=== PATIENT | male | born 1955 | race Caucasian/White ===

== ENCOUNTER 2016-08-15 21:04 | Emergency (ER) | payer OTHER ==
[~2016-08-15] VITALS: Ht 177.8 cm; Wt 97.1 kg
[~2016-08-15 21:04] MED LIST: AMIO200T PO; ASPI325T11 PO; ASPI325T4 PO; ATOR10TA60 PO; B12/1TAB PO; CLOP75TA27 PO; CRESTOR20 MG PO; DOXA2TAB2 PO; FAMO20TA5 PO; GABA600T2 PO; IBUP-1027 PO; INSU100I17 SQ; INSU100I27 SQ; INSU100V13 SQ; LISI-338 PO; LISI1TAB3 PO; METF500T4 PO; METO25TA4 PO; METO25TA9 PO; OXYC-323 PO; PANT40TA5 PO; PIOG30TA20 PO
[2016-08-15 21:41] LABS: BILIRUBIN,URINE NEGATIVE (NEG); GLUCOSE,URINE NEGATIVE (NEG); NITRITE,URINE NEGATIVE (NEG); PH,URINE 5.5; PROTEIN,URINE NEGATIVE (NEG-TRACE); UROBILINOGEN,URINE 0.2 mg/dL (0.2 mg/dL)
[2016-08-15 21:43] LABS: BASO # 0.1 x10^3/uL (0.0-0.2); BASO % 1 % (0-3); EOS % 2 % (0-3); HEMATOCRIT 37.1 % (39.0-53.0); HEMOGLOBIN 11.8 g/dL (13.0-17.5); LYMPH # 0.8 x10^3/uL (1.0-4.8); LYMPH % 10 % (24-48); MEAN CORPUSCULAR HEMOGLOBIN 22 pg (25-35); MEAN CORPUSCULAR HGB CONC 32 g/dL (31-37); MEAN CORPUSCULAR VOLUME 69 fL (79-100); MONO % 7 % (0-9); NEUT % 81 % (31-73); PLATELET COUNT 231 x10^3/uL (140-400); RED BLOOD COUNT 5.42 x10^6/uL (4.30-5.70); RED CELL DISTRIBUTION WIDTH 19.2 % (11.5-14.5); WHITE BLOOD COUNT 8.4 x10^3/uL (4.0-11.0)
[2016-08-15] MEDS ORDERED: HYDROMORPHONE 2 MG/ML VIAL. IV PRN (21:45)
[2016-08-15 21:48] LABS: BACTERIA,URINE 0 /HPF (0-FEW); RBC,URINE 0 /HPF (0-2); SQUAMOUS EPITHELIAL CELL,UR OCC /LPF; WBC,URINE OCC /HPF (0-4)
[2016-08-15 21:53] LABS: CALCIUM 9.5 mg/dL (8.5-10.1)
[2016-08-15 21:58] LABS: ALBUMIN 3.9 g/dL (3.4-5.0); DIRECT BILIRUBIN 0.1 mg/dL (0.0-0.2); TOTAL BILIRUBIN 0.5 mg/dL (0.2-1.0); TOTAL PROTEIN 7.6 g/dL (6.4-8.2)
[2016-08-15] MEDS ORDERED: IV NORMAL SALINE 500ML BAG 500 ML IV ONE (22:00)
[2016-08-15] MEDS ORDERED: ONDANSETRON PF 4 MG/2 ML VIAL. IV ONE (22:00)
[2016-08-15 22:02] LABS: ANISOCYTOSIS MOD; HYPOCHROMIA MOD; MICROCYTOSIS MARKED; OVALOCYTES FEW; PLT ESTIMATE ADEQUATE (ADEQUATE)
[2016-08-15] MEDS ORDERED: CONTRAST GIVEN MC PRN (22:30)
[2016-08-15] MEDS ORDERED: HYDR-2666 PO (22:36)
[2016-08-15] MEDS ORDERED: ONDA4TAB10 SL (22:36)
--- NOTE | 2016-08-15 22:36 | PHYS DOC ---
Past Medical History Past Medical History: Cancer, Diabetes-Type II, High Cholesterol, Heart Disease , Hypertension, [place], Other Additional Past Medical Histor: colon cancer Past Surgical History: Angioplasty, Coronary Bypass Surgery Additional Past Surgical Histo: angioplasty with stent placement, TURP, ileostomy placement Alcohol Use: Occasionally Drug Use: None Adult General Chief Complaint Chief Complaint: ABDOMINAL PAIN HPI HPI 60-year-old male with a history of a total colectomy status post ileostomy placement after being diagnosed with colon cancer presenting to the emergency department today with loose stools from his ostomy and abdominal cramping throughout the abdomen generally. The pain as a cramping pain nonradiating , associated with bloating and watery stools. It is moderate in severity. He denies any associated nausea or vomiting. He denies any fevers or chills. Review of systems is negative for chest pain shortness of breath nausea or vomiting. All other review of systems is negative unless otherwise noted in history of present illness. Review of Systems Review of Systems SEE ABOVE. Current Medications Current Medications Current Medications Medications (Trade) Dose Ordered Sig/Alistair Start Time Stop Time Status Last Admin Dose Admin Hydromorphone HCl (Dilaudid) 0.5 mg PRN Q1HR PRN 08/15/16 21:45 08/15/16 21:52 0.5 MG Info (Do NOT chart on this entry -- for MONITORING) 1 each PRN DAILY PRN 08/15/16 22:30 08/17/16 22:29 Iohexol (Omnipaque 300 Mg/ml) 75 ml 1X ONCE 08/15/16 23:00 08/15/16 23:01 DC 08/15/16 22:49 75 ML Ondansetron HCl 4 mg 4 mg 1X ONCE 08/15/16 22:00 08/15/16 22:01 DC 08/15/16 21:52 4 MG Sodium Chloride (Iv Sodium Chloride 0.9% 500ml Bag) 500 ml @ 500 mls/hr 1X ONCE 08/15/16 22:00 08/15/16 22:59 DC 08/15/16 21:53 500 MLS/HR Allergies Allergies Allergies Coded Allergies Type Severity Reaction Last Updated Verified No Known Medication Allergies Allergy Unknown 06/14/16 Yes Physical Exam Physical Exam Constitutional: Well developed, well nourished, no acute distress, non-toxic appearance. HENT: Normocephalic, atraumatic, bilateral external ears normal, oropharynx moist, no oral exudates, nose normal. [] Eyes: PERRLA, EOMI, conjunctiva normal, no discharge. Neck: Normal range of motion, no tenderness, supple, no stridor. [] Cardiovascular:Heart rate regular rhythm, no murmur Lungs & Thorax: Bilateral breath sounds clear to auscultation [] Abdomen: Mild distention of the abdomen with ileostomy present. Nontender. No rebound tenderness or guarding present. mildly tympanic to percussion. Skin: Warm, dry, no erythema, no rash. Back: No tenderness, no CVA tenderness. [] Extremities: No tenderness, no cyanosis, no clubbing, ROM intact, no edema. Neurologic: Alert and oriented X 3, normal motor function, normal sensory function, no focal deficits noted. [] Psychologic: Affect normal, judgement normal, mood normal. Current Patient Data Vital Signs Vital Signs Date Time Temp Pulse Resp B/P Pulse Ox O2 Delivery O2 Flow Rate FiO2 08/15/16 21:15 98.4 76 16 158/85 97 Room Air 98.4 Lab Values Laboratory Tests Test 08/15/16 21:16 08/15/16 21:28 08/15/16 22:13 Urine Collection Type Unknown Urine Color Yellow Urine Clarity Clear Urine pH 5.5 Urine Specific [place] 1.025 Urine Protein Negativemg/dL (NEG-TRACE) Urine Glucose (UA) Negativemg/dL (NEG) Urine Ketones (Stick) Negativemg/dL (NEG) Urine Blood Negative (NEG) Urine Nitrite Negative (NEG) Urine Bilirubin Negative (NEG) Urine Urobilinogen Dipstick 0.2mg/dL (0.2 mg/dL) Urine Leukocyte Esterase Negative (NEG) Urine RBC 0/HPF (0-2) Urine WBC Occ/HPF (0-4) Urine Squamous Epithelial Cells Occ/LPF Urine Bacteria 0/HPF (0-FEW) Urine Mucus Mod/LPF White Blood Count 8.4x10^3/uL (4.0-11.0) Red Blood Count 5.42x10^6/uL (4.30-5.70) Hemoglobin 11.8g/dL (13.0-17.5) L Hematocrit 37.1% (39.0-53.0) L Mean Corpuscular Volume 69fL (79-100) L Mean Corpuscular Hemoglobin 22pg (25-35) L Mean Corpuscular Hemoglobin Concent 32g/dL (31-37) Red Cell Distribution Width 19.2% (11.5-14.5) H Platelet Count 231x10^3/uL (140-400) Neutrophils (%) (Auto) 81% (31-73) H Lymphocytes (%) (Auto) 10% (24-48) L Monocytes (%) (Auto) 7% (0-9) Eosinophils (%) (Auto) 2% (0-3) Basophils (%) (Auto) 1% (0-3) Neutrophils # (Auto) 6.8x10^3uL (1.8-7.7) Lymphocytes # (Auto) 0.8x10^3/uL (1.0-4.8) L Monocytes # (Auto) 0.6x10^3/uL (0.0-1.1) Eosinophils # (Auto) 0.1x10^3/uL (0.0-0.7) Basophils # (Auto) 0.1x10^3/uL (0.0-0.2) Platelet Estimate Adequate (ADEQUATE) Hypochromasia Mod Anisocytosis Mod Microcytosis Marked Ovalocytes Few Sodium Level 142mmol/L (136-145) Potassium Level 4.0mmol/L (3.5-5.1) Chloride Level 104mmol/L (98-107) Carbon Dioxide Level 27mmol/L (21-32) Anion Gap 11 (6-14) Blood Urea Nitrogen 14mg/dL (8-26) Creatinine 1.0mg/dL (0.7-1.3) Estimated GFR (Cockcroft-Gault) 76.0 Glucose Level 175mg/dL (70-99) H Calcium Level 9.5mg/dL (8.5-10.1) Total Bilirubin 0.5mg/dL (0.2-1.0) Direct Bilirubin 0.1mg/dL (0.0-0.2) Aspartate Amino Transferase (AST) 27U/L (15-37) Alanine Aminotransferase (ALT) 40U/L (16-63) Alkaline Phosphatase 60U/L (46-116) Troponin I Quantitative < 0.017ng/mL (0.000-0.055) Total Protein 7.6g/dL (6.4-8.2) Albumin 3.9g/dL (3.4-5.0) Lipase 248U/L (73-393) Lactic Acid Level 1.5mmol/L (0.4-2.0) Laboratory Tests 08/15/16 21:28 Laboratory Tests 08/15/16 21:28 EKG EKG [] Sinus rhythm with a regular rate. [place] is leftward. Intervals within normal limits. ST segments are congruent. Radiology/Procedures Radiology/Procedures [] Course & Med Decision Making Course & Med Decision Making Pertinent Labs and Imaging studies reviewed. (See chart for details) [] 60-year-old male presenting the emergency department today with abdominal pain and cramping and diarrhea. Vital signs unremarkable other than mild hypertension. Physical exam showed a mildly distended abdomen with mild tympany. Otherwise nontender. Nausea and pain medication given. Blood work obtained. Mild anemia which is microcytic obtained. Urinalysis not suggestive of infection. Chemistry panel otherwise unremarkable. Lipase within normal limits. Troponin normal. EKG unremarkable. CT the abdomen and pelvis showed possible partial bowel obstruction. I reevaluated the patient. He is feeling much better. I offered admission versus outpatient clear liquids and close follow-up with his primary care physician. The patient desired to be discharged home to follow clear liquid diet to follow-up with his primary care physician over the next day or 2. Dragon Disclaimer Dragon Disclaimer This electronic medical record was generated, in whole or in part, using a voice recognition dictation system. Departure Departure Impression: Primary Impression: Abdominal pain Referrals: SACHA DIGGS MD (PCP) Patient Instructions: Abdominal Pain Additional Instructions: Thank you for allowing us to participate in your care today. Followup with your primary care physician in 3 days if your symptoms do not improve. If you do not have a primary care provider you can ask for a list of our primary care providers. Return to the emergency department you have any new or concerning findings. This should be evaluated by the primary care physician and any necessary consulting services for continued management within a few days after discharge. Return to emergency room if you have any new or concerning symptoms including but not limited to fever, chills, nausea, vomiting, intractable pain, any new rashes, chest pain, shortness of air, uncontrolled bleeding, difficulty breathing, and/or vision loss. You may have been prescribed medication that can change in your level of thinking and ability to operate machinery. These medications include hydrocodone and Ativan. Also, Benadryl has been known to do this as well. Be sure to check with your pharmacist and ask if the medications you've prescribed can affect your level of consciousness. I recommend not operating heavy machinery or driving while on medication such as these. Scripts Ondansetron (Zofran Odt)4 Mg Tab.rapdis1 Tab SL PRN Q8HRS PRN NAUSEA #6 TAB Prov:HEYDI DYSON MD 08/15/16 Hydrocodone Bit/Acetaminophen (Hydrocodone-Apap 5-325 )1 Each Tablet1 Tab PO PRN Q6HRS PRN PAIN #15 TAB Be careful as this medication may cause you to be drowsy or tired. Do not drive on this medication. Prov:HEYDI DYSON MD 08/15/16 HEYDI DYSON MD Aug 15, 2016 22:36
[2016-08-15] MEDS ORDERED: IOHEXOL 300 MG/ML 75 ML VIAL IV ONE (23:00)
--- NOTE | 2016-08-15 23:12 | RAD ---
INDICATION: Abdomen pain. COMPARISON: January 26, 2014 TECHNIQUE: Axial CT images obtained through the abdomen and pelvis. Intravenous contrast was utilized. One or more of the following individualized dose reduction techniques were utilized for this examination: 1. Automated exposure control; 2. Adjustment of the mA and/or kV according to patient size; 3. Use of iterative reconstruction technique. FINDINGS: Abdominal aorta not aneurysmal. Sub 4 millimeter pulmonary nodule left lung base again seen. Coronary artery calcific atherosclerosis. Moderate calcific atherosclerosis. No intrahepatic bile duct dilation. No peripancreatic edema. Spleen unremarkable. No hydronephrosis. 2 centimeter left renal cystic lesion. Small right fat containing inguinal hernia. Right lower quadrant ostomy. There are some mildly dilated loops of small bowel measuring up to about 35 millimeters. Post colonic resection. Bladder unremarkable within limits of CT. Small ventral fat containing anterior abdominal wall hernia. Degenerative changes spine. IMPRESSION: There is some dilated loops of small bowel identified. Causes such as partial small bowel obstruction is possible given this finding. Other possible etiology is ileus. Calcific atherosclerosis. Left renal cystic lesion. Electronically signed by: Konstantin Wyatt (Aug 15, 2016 23:11:14)
[2016-08-15 23:51] VITALS: BP 137/58
--- NOTE | 2016-08-16 11:44 | EKG ---
[facility] [address] [place] [address] Test Date: 2016-08-15 Test Time: 21:45:07 Pat Name: YANA TORRES Department: Room: Gender: M Park Guide: : 1955 Requested By: HEYDI DYSON Order Number: [id number] Reading MD: Measurements Intervals [place] Rate: 83 P: -26 TX: 148 QRS: -34 QRSD: 108 T: 34 QT: 376 QTc: 448 Interpretive Statements SINUS RHYTHM ABNORMAL LEFT AXIS DEVIATION ABNORMAL ECG RI6.01 No previous ECG available for comparison
--- NOTE | 2016-08-16 12:16 | EKG ---
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
[2016-08-16] MEDS ORDERED: DOXA2TAB2 PO (15:30)
[2016-08-16] MEDS ORDERED: INSU100V13 SQ (15:30)
== END 2016-08-16 00:05 | disposition home or self-care (01) ==
LOC: ER 21:04
DX: R10.9 Unspecified abdominal pain (principal); E78.00 Pure hypercholesterolemia, unspecified; I25.2 Old myocardial infarction; I10 Essential (primary) hypertension; E11.9 Type 2 diabetes mellitus without complications; Z95.1 Presence of aortocoronary bypass graft; Z85.038 Personal history of other malignant neoplasm of large intestine; Z93.2 Ileostomy status
CPT/HCPCS: 36415; 74177; 80048; 80076; 81001; 83605; 83690; 84484; 85007; 85027; 93005; 96361; 96374; 96375; 99285; J1170; J2405; J7040; Q9967

== ENCOUNTER 2016-08-16 07:06 | Inpatient (IN) | payer OTHER ==
[~2016-08-16] VITALS: Ht 177.8 cm; Wt 99.8 kg
[~2016-08-16 07:06] MED LIST changes: +HYDR-2666 PO; +ONDA4TAB10 SL
--- NOTE | 2016-08-16 07:52 | PHYS DOC ---
Past Medical History Past Medical History: Cancer, Diabetes-Type II, High Cholesterol, Heart Disease , Hypertension, [place], Other Additional Past Medical Histor: colon cancer Past Surgical History: Angioplasty, Coronary Bypass Surgery Additional Past Surgical Histo: angioplasty with stent placement, TURP, ileostomy placement Alcohol Use: Occasionally Drug Use: None Adult General Chief Complaint Chief Complaint: CONSTIPATION HPI HPI Patient is a 60 year old male presents to the emergency department for the second time in 2 days. He has a history of a total colectomy status post ileostomy placement after being diagnosed with colon cancer. Patient was originally seen yesterday for loose stools and abdominal cramping. He presents back to the emergency department today stating that he has had only one stool out of his colostomy. Patient still continues to have generalized abdominal pain denies the pain being radiating. He states the pain as a 10 out of 10. He does associate this with nausea denies any vomiting. Patient had a CT scan done yesterday showed a possible partial bowel obstruction. Labs were normal. Patient was offered admission yesterday and declined. He states that he felt that he could take care of the problem at home. Review of Systems Review of Systems Constitutional: Denies fever or chills [] Eyes: Denies change in visual acuity, redness, or eye pain [] HENT: Denies nasal congestion or sore throat [] Respiratory: Denies cough or shortness of breath [] Cardiovascular: No additional information not addressed in HPI [] GI: abdominal pain, nausea, denies vomiting, bloody stools or diarrhea [] : Denies dysuria or hematuria [] Musculoskeletal: Denies back pain or joint pain [] Integument: Denies rash or skin lesions [] Neurologic: Denies headache, focal weakness or sensory changes [] Current Medications Current Medications Current Medications Medications (Trade) Dose Ordered Sig/Alistair Start Time Stop Time Status Last Admin Dose Admin Fentanyl Citrate (Fentanyl 2ml Vial) 50 mcg 1X ONCE 08/16/16 08:00 08/16/16 08:01 DC 08/16/16 07:53 50 MCG Hydromorphone HCl (Dilaudid) 0.5 mg 1X ONCE 08/16/16 08:45 08/16/16 08:46 08/16/16 08:31 0.5 MG Sodium Chloride (Iv Sodium Chloride 0.9% 1000ml Bag) 1,000 ml @ 100 mls/hr 1X ONCE 08/16/16 08:00 08/16/16 17:59 08/16/16 08:16 100 MLS/HR Allergies Allergies Allergies Coded Allergies Type Severity Reaction Last Updated Verified No Known Medication Allergies Allergy Unknown 06/14/16 Yes Physical Exam Physical Exam Constitutional: Well developed, well nourished, no acute distress, non-toxic appearance. [] HENT: Normocephalic, atraumatic, bilateral external ears normal, oropharynx moist, no oral exudates, nose normal. [] Eyes: PERRLA, EOMI, conjunctiva normal, no discharge. [] Neck: Normal range of motion, no tenderness, supple, no stridor. [] Cardiovascular:Heart rate regular rhythm, no murmur [] Lungs & Thorax: Bilateral breath sounds clear to auscultation [] Abdomen: Bowel sounds hypoactive, soft, generalized tenderness, no masses, no pulsatile masses. No rebound tenderness noted. Ileostomy in place with no drainage noted. Skin: Warm, dry, no erythema, no rash. [] Back: No tenderness Extremities: No tenderness, no cyanosis, no clubbing, ROM intact, no edema. [] Neurologic: Alert and oriented X 3, normal motor function, normal sensory function, no focal deficits noted. [] Psychologic: Affect normal, judgement normal, mood normal. [] Current Patient Data Vital Signs Vital Signs Date Time Temp Pulse Resp B/P Pulse Ox O2 Delivery O2 Flow Rate FiO2 08/16/16 08:31 18 93 Room Air 08/16/16 08:18 85 142/75 08/16/16 07:22 97.8 97.8 Lab Values Laboratory Tests Test 08/16/16 07:45 White Blood Count 9.0x10^3/uL (4.0-11.0) Red Blood Count 5.46x10^6/uL (4.30-5.70) Hemoglobin 11.8g/dL (13.0-17.5) L Hematocrit 37.5% (39.0-53.0) L Mean Corpuscular Volume 69fL (79-100) L Mean Corpuscular Hemoglobin 22pg (25-35) L Mean Corpuscular Hemoglobin Concent 32g/dL (31-37) Red Cell Distribution Width 18.8% (11.5-14.5) H Platelet Count 218x10^3/uL (140-400) Neutrophils (%) (Auto) 83% (31-73) H Lymphocytes (%) (Auto) 8% (24-48) L Monocytes (%) (Auto) 8% (0-9) Eosinophils (%) (Auto) 1% (0-3) Basophils (%) (Auto) 0% (0-3) Neutrophils # (Auto) 7.5x10^3uL (1.8-7.7) Lymphocytes # (Auto) 0.7x10^3/uL (1.0-4.8) L Monocytes # (Auto) 0.7x10^3/uL (0.0-1.1) Eosinophils # (Auto) 0.1x10^3/uL (0.0-0.7) Basophils # (Auto) 0.0x10^3/uL (0.0-0.2) Platelet Estimate Pending Sodium Level 140mmol/L (136-145) Potassium Level 4.1mmol/L (3.5-5.1) Chloride Level 103mmol/L (98-107) Carbon Dioxide Level 23mmol/L (21-32) Anion Gap 14 (6-14) Blood Urea Nitrogen 14mg/dL (8-26) Creatinine 1.0mg/dL (0.7-1.3) Estimated GFR (Cockcroft-Gault) 76.0 BUN/Creatinine Ratio 14 (6-20) Glucose Level 229mg/dL (70-99) H Calcium Level 9.1mg/dL (8.5-10.1) Total Bilirubin 0.8mg/dL (0.2-1.0) # Aspartate Amino Transferase (AST) 39U/L (15-37) H Alanine Aminotransferase (ALT) 42U/L (16-63) Alkaline Phosphatase 58U/L (46-116) Total Protein 7.1g/dL (6.4-8.2) Albumin 3.7g/dL (3.4-5.0) Albumin/Globulin Ratio 1.1 (1.0-1.7) Amylase Level 56U/L (25-115) Lipase 162U/L (73-393) Laboratory Tests 08/16/16 07:45 Laboratory Tests 2/19/17 07:45 EKG EKG [] Radiology/Procedures Radiology/Procedures [] Course & Med Decision Making Course & Med Decision Making Pertinent Labs and Imaging studies reviewed. (See chart for details) Patient was provided with fentanyl with minimal relief. Dilaudid was ordered [address] Wyatt in regards to admission. He would like a consult placed to surgery. NPO, IV fluids [] Dragon Disclaimer Dragon Disclaimer This electronic medical record was generated, in whole or in part, using a voice recognition dictation system. Departure Departure Impression: Primary Impression: Abdominal pain Disposition: ADMITTED INPATIENT Admitting Physician: Jaswinder Wyatt Referrals: JASWINDER WYATT MD (PCP) LAUREEN MAYA NP Aug 16, 2016 07:52
[2016-08-16] MEDS ORDERED: FENTANYL PF 100 MCG/2 ML VIAL. IV ONE (08:00)
[2016-08-16] MEDS ORDERED: IV NORMAL SALINE 1000ML BAG 1,000 ML IV ONE (08:00)
[2016-08-16 08:01] LABS: BASO % 0 % (0-3); EOS % 1 % (0-3); HEMATOCRIT 37.5 % (39.0-53.0); HEMOGLOBIN 11.8 g/dL (13.0-17.5); LYMPH # 0.7 x10^3/uL (1.0-4.8); LYMPH % 8 % (24-48); MEAN CORPUSCULAR HEMOGLOBIN 22 pg (25-35); MEAN CORPUSCULAR HGB CONC 32 g/dL (31-37); MEAN CORPUSCULAR VOLUME 69 fL (79-100); MONO % 8 % (0-9); NEUT % 83 % (31-73); PLATELET COUNT 218 x10^3/uL (140-400); RED BLOOD COUNT 5.46 x10^6/uL (4.30-5.70); RED CELL DISTRIBUTION WIDTH 18.8 % (11.5-14.5)
[2016-08-16 08:09] LABS: CALCIUM 9.1 mg/dL (8.5-10.1); POTASSIUM 4.1 mmol/L (3.5-5.1)
[2016-08-16 08:14] LABS: ALBUMIN 3.7 g/dL (3.4-5.0); ALBUMIN/GLOBULIN RATIO 1.1 (1.0-1.7); TOTAL BILIRUBIN 0.8 mg/dL (0.2-1.0); TOTAL PROTEIN 7.1 g/dL (6.4-8.2)
[2016-08-16] MEDS ORDERED: HYDROMORPHONE 2 MG/ML VIAL. IV ONE (08:45)
[2016-08-16] MEDS ORDERED: ONDANSETRON PF 4 MG/2 ML VIAL. IV PRN (08:45)
--- NOTE | 2016-08-16 09:01 | ACF ---
Admit Criteria Forms Admit Criteria Forms Admit Criteria Forms ABDOMINAL PAIN Clinical Indications for Admission to Inpatient Care (Place 'X' for any and all applicable criteria): Admission is indicated for ANY ONE of the following(1)(2)(3)(4)(5): [X]I. Inpatient admission required rather than observation care (Also use Abdominal Pain: Observation Care, as appropriate) because of ANY ONE of the following: [X]a) Severe pain requiring acute inpatient management [ ]b) Identification of etiology/finding that requires inpatient care (eg, aortic dissection, free air) [ ]c) Absent bowel sounds with complete ileus(6) [ ]d) Suspected toxic megacolon [ ]e) Severe electrolyte abnormalities requiring inpatient care [ ]f) High fever or infection requiring inpatient admission as indicated by ANY ONE of following(7)(8): [ ] i) Appropriate outpatient or observational care antimicrobial treatment unavailable, not effective, or not feasible [ ] ii) Documented bacteremia [ ] iii) Temperature > 104.9 degrees F (oral) [ ] iv) T >103.1 F (oral) or < 96.8 F(rectal) that does not respond to all emergency treatment measures [ ]g) Signs of intestinal obstruction [B] [ ]h) Hemodynamic instability [ ]i) IV fluid to replace significant ongoing losses (greater than 3 L/m2 per day) (12)(13) [ ]j) Percutaneous or open drainage (eg, abscess, biliary tract ) procedures [ ]k) Parenteral nutrition regimen that must be implemented on inpatient basis [ ]l) Other condition,treatment or monitoring requiring inpatient admission. [ ]II. Peritoneal signs present [ ]III. Surgery needed that cannot be performed on an ambulatory basis. [ ]IV. Evaluation requires patient to not eat or drink for extended period ( eg, more than 24 hours). [ ]V. Contraindications and/or Inappropriate clinical situations for Observational Care in patients with abdominal pain, when ANY ONE of the following is required: [ ]a) Thorough evaluation is required to prevent catastrophic events due to delays in diagnosing (e.g.Mesenteric ischemia) 1,3 [ ]b) Patient with severe pathology or with chronic symptoms unlikely to improve in the ED stay (3) [ ]. General contraindications and/or Inappropriate clinical situations for Observational Care in patients with abdominal pain, when ANY ONE of the following is required: [ ]a) Prediction of prolongation of LOS based on ANY ONE of the following may be considered as a contraindication for observational care 2, 3, 4, 5, 6, 7, 8, 9, 10, 11 [ ]i) Age > 65 yrs. [ ]ii) Patient arriving by ambulance [ ]iii) Patient with high acuity [ ]iv) Patient requiring vital sign monitoring [ ]v) Patient on IV medication [ ]b) Systolic blood pressures 180mmHg 3,12 [ ]c) Patient with altered mental status including delirium and other alteration of consciousness, (3) [ ]d) Patient whose discharge disposition will be to a [facility] home or rehabilitation home should not be managed in Emergency Department Observation Unit. CMS rule requires 3 days hospital stay before such placement.3,13 [ ]e) Patient with failure to thrive due to broad array of etiologies 3,16,17 [ ]f) Inability to ambulate 3,14 Extended stay beyond goal length of stay may be needed for(2)(3): [ ]a) Persistent abdominal pain with suspected intra-abdominal process [ ]b) Diagnosed condition requiring continued stay (e.g., pancreatitis, complicated diverticulitis) [ ]c) Surgery (e.g., colectomy) The original [employer] content created by [employer] has been revised. The portions of the content which have been revised are identified through the use of italic text or in bold, and [email or web address] has neither reviewed nor approved the modified material.All other unmodified content is copyright [employer]. Please see references footnoted in the original [facility] edition 2016 LUKE HERNANDEZ Aug 16, 2016 09:01
[2016-08-16] MEDS ORDERED: DEXTROSE 50% 25 GM / 50ML DISP.SYRIN. IV PRN (09:45)
[2016-08-16] MEDS: INSULIN DETEMIR 300 UNITS/3 ML INSULN.PEN. SQ SCH (10:00)
[2016-08-16 10:09] LABS: PLT ESTIMATE ADEQUATE (ADEQUATE)
[2016-08-16 10:10] LABS: ANISOCYTOSIS SLIGHT; HYPOCHROMIA MOD; MICROCYTOSIS MOD; POIKILOCYTOSIS PRESENT
--- NOTE | 2016-08-16 10:26 | PDOC2 ---
CONSULT Date of Consult Date of Consult DATE: 08/16/16 TIME: 10:22 History of Present Illness Reason for Visit: The patient is a 60 year old male who reported to the ER with abdominal pain. The pain was somewhat sudden and diffuse, and occurred last evening at 6 pm. He denies nausea or vomiting. He was evaluated in the ER and admitted. 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 He states the ileostomy output is decreased. Past Medical History Cardiovascular: CAD, HTN, [place] Endocrine: Diabetes Past Surgical History Past Surgical History colectomy, ileostomy Current Problem List Problem List Problems Medical Problems: (1) Abdominal pain Status: Acute Current Medications Current Medications Current Medications Sodium Chloride (Iv Sodium Chloride 0.9% 1000ml Bag) 1,000 ml @ 100 mls/hr 1X ONCE IV Last administered on 08/16/16 08:16; Start 08/16/16 at 08:00; Stop at 17:59 Fentanyl Citrate (Fentanyl 2ml Vial) 50 mcg 1X ONCE IV Last administered on 07:53; Start 08/16/16 at 08:00; Stop 08/16/16 at 08:01; Status DC Hydromorphone HCl (Dilaudid) 0.5 mg 1X ONCE IV Last administered on 08/16/16 08:31; Start 08/16/16 at 08:45; Stop 08/16/16 at 08:46; Status DC Ondansetron HCl 4 mg 4 mg PRN Q8HRS PRN IV NAUSEA/VOMITING; Start 08/16/16 at 08:45; Stop 08/17/16 at 08:44 Sodium Chloride (Iv Sodium Chloride 0.9% 1000ml Bag) 1,000 ml @ 100 mls/hr Q10H IV ; Start 08/16/16 at 10:00; Stop 08/17/16 at 09:59 Hydromorphone HCl (Dilaudid) 0.5 mg Q2HR IV ; Start 08/16/16 at 10:00 Insulin Aspart (Novolog) 0-9 UNITS TIDWMEALS SQ ; Start 08/16/16 at 12:00 Dextrose 12.5 gm PRN Q15MIN PRN IV SEE COMMENTS; Start 08/16/16 at 09:45 Insulin Detemir (Levemir) 30 units DAILY10 SQ ; Start 08/16/16 at 10:00 Active Scripts Active Zofran Odt (Ondansetron) 4 Mg Tab.rapdis 1 Tab SL PRN Q8HRS PRN Hydrocodone-Apap 5-325 (Hydrocodone Bit/Acetaminophen) 1 Each Tablet 1 Tab PO PRN Q6HRS PRN Be careful as this medication may cause you to be drowsy or tired. Do not drive on this medication. Levemir Flextouch (Insulin Detemir) 100 Unit/1 Ml Insuln.pen 60 Units SQ QHS 30 Days Novolog Flexpen (Insulin Aspart) 100 Unit/1 Ml Insuln.pen 15 Units SQ TIDAC 30 Days Reported Gabapentin 600 Mg Tablet 600 Mg PO PRN TID PRN Metoprolol Succinate ( Xl ) (Metoprolol Succinate) 25 Mg Tab.er.24h 25 Mg PO DAILY Percocet 5-325 Mg Tablet (Oxycodone/Acetaminophen) 1 Each Tablet 1-2 Tab PO Q4- 6HRS last pain pill was at 0900 may have a pain pill at any time after 3pm Aspirin Ec (Aspirin) 325 Mg Tablet.dr 1 Tab PO DAILY last dose was this am next dose tomorrow am Metformin Hcl 500 Mg Tablet 500 Mg PO TIDWMEALS not given in hospital may resume with supper tonight Atorvastatin Calcium 10 Mg Tablet 10 Mg PO HS last dose last night next dose tonight Pantoprazole Sodium 40 Mg Tablet.dr 40 Mg PO DAILY last dose this am next dose tomorrow am Plavix (Clopidogrel Bisulfate) 75 Mg Tablet 75 Mg PO DAILY08 not given in hospital next dose in am Crestor (Rosuvastatin Calcium) 20 Mg Tablet 20 Mg PO QHS last dose last night next dose tonight Allergies Allergies: Coded Allergies: No Known Medication Allergies (Verified Allergy, Unknown, 06/14/16) ROS General: No: Appetite, Chills, Fatigue, Malaise, Night Sweats, Other PSYCHOLOGICAL ROS: No: Anxiety, Behavioral Disorder, Concentration difficultie , Decreased libido, Depression, Disorientation, Hallucinations, Hostility, Irritablity, Memory difficulties, Mood Swings, Obsessive thoughts, Other, Physical abuse, Sexual abuse, Sleep disturbances, Suicidal ideation Eyes: No Blurry vision, No Decreased vision, No Double vision, No Dry eyes, No Excessive tearing, No Eye Pain, No Itchy Eyes, No Loss of vision, No Other, No Photophobia, No Scotomata, No Uses contacts, No Uses glasses HEENT: No: Epistaxis, Heacaches, Hearing change, Nasal congestion, Nasal discharge, Oral lesions, Other, Sinus pain, Sneezing, Snoring, Sore Throat, Tinnitus, Vertigo, Visual Changes, Vocal changes ENDOCRINE: No: Breast Changes, Galactorrhea, Hair Pattern Changes, Hot Flashes , Malaise/lethargy, Mood Swings, Other, Palpitations, Polydipsia/polyuria, Skin Changes, Temperature Intolerance, Unexpected Weight Changes Respiratory: No: Cough, Hemoptysis, Orthopnea, Other, Pleuritic Pain, SOB with excertion, Shortness of breath, Sputum Changes, Stridor, Tachypnea, Wheezing Cardiovascular: No Chest Pain, No Edema, No Lt Headedness, No Orthopnea, No Other, No Palpitations, No Paroxysmal Noc. Dyspnea Gastrointestinal: Yes Abdominal Pain Genitourinary: No , No , No , No , No , No , No , No Discharge, No Dysuria, No Flank Pain, No Frequency, No Hematuria, No Incontinence, No Other, No Pain, No Retention, No Urgency Musculoskeletal: No Gait Disturbance, No Joint Pain, No Joint Stiffness, No Joint Swelling, No Muscle Pain, No Muscular Weakness, No Other, No Pain In:, No Swelling In: Physical Exam General: Alert, Oriented X3, Cooperative, No acute distress HEENT: Atraumatic Lungs: Clear to auscultation Abdomen: Other (mildly distended, mildly tender with palpation, diffuse, ileostomy present, no guarding or peritoneal signs) Extremities: No clubbing, No cyanosis Skin: No breakdown Neuro: Normal speech Psych/Mental Status: Mental status NL MUSCULOSKELETAL: No joint tenderness Vitals VITALS Vital Signs Date Time Temp Pulse Resp B/P Pulse Ox O2 Delivery O2 Flow Rate FiO2 08/16/16 08:31 18 93 Room Air 08/16/16 08:18 85 142/75 08/16/16 07:22 97.8 97.8 Labs Labs Laboratory Tests Test 08/16/16 07:45 White Blood Count 9.0x10^3/uL (4.0-11.0) Red Blood Count 5.46x10^6/uL (4.30-5.70) Hemoglobin 11.8g/dL (13.0-17.5) Hematocrit 37.5% (39.0-53.0) Mean Corpuscular Volume 69fL (79-100) Mean Corpuscular Hemoglobin 22pg (25-35) Mean Corpuscular Hemoglobin Concent 32g/dL (31-37) Red Cell Distribution Width 18.8% (11.5-14.5) Platelet Count 218x10^3/uL (140-400) Neutrophils (%) (Auto) 83% (31-73) Lymphocytes (%) (Auto) 8% (24-48) Monocytes (%) (Auto) 8% (0-9) Eosinophils (%) (Auto) 1% (0-3) Basophils (%) (Auto) 0% (0-3) Neutrophils # (Auto) 7.5x10^3uL (1.8-7.7) Lymphocytes # (Auto) 0.7x10^3/uL (1.0-4.8) Monocytes # (Auto) 0.7x10^3/uL (0.0-1.1) Eosinophils # (Auto) 0.1x10^3/uL (0.0-0.7) Basophils # (Auto) 0.0x10^3/uL (0.0-0.2) Platelet Estimate Adequate (ADEQUATE) Hypochromasia Mod Poikilocytosis Present Anisocytosis Slight Microcytosis Mod Sodium Level 140mmol/L (136-145) Potassium Level 4.1mmol/L (3.5-5.1) Chloride Level 103mmol/L (98-107) Carbon Dioxide Level 23mmol/L (21-32) Anion Gap 14 (6-14) Blood Urea Nitrogen 14mg/dL (8-26) Creatinine 1.0mg/dL (0.7-1.3) Estimated GFR (Cockcroft-Gault) 76.0 BUN/Creatinine Ratio 14 (6-20) Glucose Level 229mg/dL (70-99) Calcium Level 9.1mg/dL (8.5-10.1) Total Bilirubin 0.8mg/dL (0.2-1.0) Aspartate Amino Transf (AST/SGOT) 39U/L (15-37) Alanine Aminotransferase (ALT/SGPT) 42U/L (16-63) Alkaline Phosphatase 58U/L (46-116) Total Protein 7.1g/dL (6.4-8.2) Albumin 3.7g/dL (3.4-5.0) Albumin/Globulin Ratio 1.1 (1.0-1.7) Amylase Level 56U/L (25-115) Lipase 162U/L (73-393) Laboratory Tests Test 08/16/16 07:45 White Blood Count 9.0x10^3/uL (4.0-11.0) Red Blood Count 5.46x10^6/uL (4.30-5.70) Hemoglobin 11.8g/dL (13.0-17.5) Hematocrit 37.5% (39.0-53.0) Mean Corpuscular Volume 69fL (79-100) Mean Corpuscular Hemoglobin 22pg (25-35) Mean Corpuscular Hemoglobin Concent 32g/dL (31-37) Red Cell Distribution Width 18.8% (11.5-14.5) Platelet Count 218x10^3/uL (140-400) Neutrophils (%) (Auto) 83% (31-73) Lymphocytes (%) (Auto) 8% (24-48) Monocytes (%) (Auto) 8% (0-9) Eosinophils (%) (Auto) 1% (0-3) Basophils (%) (Auto) 0% (0-3) Neutrophils # (Auto) 7.5x10^3uL (1.8-7.7) Lymphocytes # (Auto) 0.7x10^3/uL (1.0-4.8) Monocytes # (Auto) 0.7x10^3/uL (0.0-1.1) Eosinophils # (Auto) 0.1x10^3/uL (0.0-0.7) Basophils # (Auto) 0.0x10^3/uL (0.0-0.2) Platelet Estimate Adequate (ADEQUATE) Hypochromasia Mod Poikilocytosis Present Anisocytosis Slight Microcytosis Mod Sodium Level 140mmol/L (136-145) Potassium Level 4.1mmol/L (3.5-5.1) Chloride Level 103mmol/L (98-107) Carbon Dioxide Level 23mmol/L (21-32) Anion Gap 14 (6-14) Blood Urea Nitrogen 14mg/dL (8-26) Creatinine 1.0mg/dL (0.7-1.3) Estimated GFR (Cockcroft-Gault) 76.0 BUN/Creatinine Ratio 14 (6-20) Glucose Level 229mg/dL (70-99) Calcium Level 9.1mg/dL (8.5-10.1) Total Bilirubin 0.8mg/dL (0.2-1.0) Aspartate Amino Transf (AST/SGOT) 39U/L (15-37) Alanine Aminotransferase (ALT/SGPT) 42U/L (16-63) Alkaline Phosphatase 58U/L (46-116) Total Protein 7.1g/dL (6.4-8.2) Albumin 3.7g/dL (3.4-5.0) Albumin/Globulin Ratio 1.1 (1.0-1.7) Amylase Level 56U/L (25-115) Lipase 162U/L (73-393) Images Images CT abdomen: MPRESSION: There is some dilated loops of small bowel identified. Causes such as partial small bowel obstruction is possible given this finding. Other possible etiology is ileus. Calcific atherosclerosis. Left renal cystic lesion. Assessment/Plan Assessment/Plan Abdominal pain, CT suggests PSBO vs ileus pattern. Recommend bowel rest, hydration, hold plavix, serial lab/exam/xray, NG if any nausea/vomiting MARYSOL CORNELIUS MD Aug 16, 2016 10:26
[2016-08-16 10:30] VITALS: BP 128/79
[2016-08-16] MEDS: HYDROMORPHONE 2 MG/ML VIAL. IV SCH ×2 (10:30→13:44)
[2016-08-16] MEDS: INSULIN ASPART 300 UNITS/3 ML INSULN.PEN SQ SCH ×2 (12:00→17:00)
[2016-08-16 14:30] VITALS: BP_SYST 111; BP_SYST 97; BP_DIAS 60; BP_DIAS 68
[2016-08-16] MEDS ORDERED: INSU100V13 SQ (15:30)
[2016-08-16] MEDS ORDERED: DOXA2TAB2 PO (15:30)
[2016-08-16] MEDS: HYDROMORPHONE 2 MG/ML VIAL. IV PRN ×3 (17:21→23:52)
[2016-08-16] MEDS: IV NORMAL SALINE 1000ML BAG 1,000 ML IV SCH ×3 (17:23→20:00)
[2016-08-16 19:00] VITALS: BP 120/65
[2016-08-16 22:56] VITALS: BP 112/68
[2016-08-17] MEDS: HYDROMORPHONE 2 MG/ML VIAL. IV PRN ×6 (02:07→15:37)
[2016-08-17 03:00] VITALS: BP 123/70
[2016-08-17] MEDS: IV NORMAL SALINE 1000ML BAG 1,000 ML IV SCH ×2 (04:30→06:00)
[2016-08-17 05:38] LABS: CALCIUM 8.4 mg/dL (8.5-10.1); CREATININE 0.8 mg/dL (0.7-1.3); GFR 98.3
[2016-08-17 07:00] VITALS: BP 145/67
--- NOTE | 2016-08-17 07:51 | PDOC ---
Provider Note Provider Note [id number] SACHA DIGGS MD Aug 17, 2016 07:51
[2016-08-17] MEDS: INSULIN ASPART 300 UNITS/3 ML INSULN.PEN SQ SCH ×3 (08:00→16:52)
[2016-08-17] MEDS: IV DEXTROSE 5%-LACT RINGERS 1,000 ML IV SCH ×2 (08:15→15:36)
[2016-08-17] MEDS: INSULIN DETEMIR 300 UNITS/3 ML INSULN.PEN. SQ SCH (08:30)
[2016-08-17] MEDS: ENOXAPARIN 40 MG/0.4 ML DISP.SYRIN. SQ SCH (08:40)
--- NOTE | 2016-08-17 09:42 | PDOC ---
MARTA SHIPMAN [employer] 08/17/16 0942: SURGICAL PROGRESS NOTE Subjective intermittent moderate to severe abdominal pain, not really improving yet no emesis, + nausea at times minimal ostomy output Vital Signs Vital Signs Date Time Temp Pulse Resp B/P Pulse Ox O2 Delivery O2 Flow Rate FiO2 08/17/16 08:52 18 Room Air 08/17/16 07:00 97.7 76 145/67 92 97.7 I&O Intake and Output 08/17/16 07:00 Intake Total 0 ml Output Total 150 ml Balance -150 ml Intake Oral 0 ml Output Urine Total 150 ml General: Alert, Oriented X3, Cooperative, No acute distress Abdomen: Soft, Other (ostomy, small amount of liquid in bag, mild tenderness generalized ) Labs Laboratory Tests Test 08/16/16 07:45 08/16/16 11:23 08/16/16 16:22 08/16/16 20:54 White Blood Count 9.0x10^3/uL (4.0-11.0) Red Blood Count 5.46x10^6/uL (4.30-5.70) Hemoglobin 11.8g/dL (13.0-17.5) Hematocrit 37.5% (39.0-53.0) Mean Corpuscular Volume 69fL (79-100) Mean Corpuscular Hemoglobin 22pg (25-35) Mean Corpuscular Hemoglobin Concent 32g/dL (31-37) Red Cell Distribution Width 18.8% (11.5-14.5) Platelet Count 218x10^3/uL (140-400) Neutrophils (%) (Auto) 83% (31-73) Lymphocytes (%) (Auto) 8% (24-48) Monocytes (%) (Auto) 8% (0-9) Eosinophils (%) (Auto) 1% (0-3) Basophils (%) (Auto) 0% (0-3) Neutrophils # (Auto) 7.5x10^3uL (1.8-7.7) Lymphocytes # (Auto) 0.7x10^3/uL (1.0-4.8) Monocytes # (Auto) 0.7x10^3/uL (0.0-1.1) Eosinophils # (Auto) 0.1x10^3/uL (0.0-0.7) Basophils # (Auto) 0.0x10^3/uL (0.0-0.2) Platelet Estimate Adequate (ADEQUATE) Hypochromasia Mod Poikilocytosis Present Anisocytosis Slight Microcytosis Mod Sodium Level 140mmol/L (136-145) Potassium Level 4.1mmol/L (3.5-5.1) Chloride Level 103mmol/L (98-107) Carbon Dioxide Level 23mmol/L (21-32) Anion Gap 14 (6-14) Blood Urea Nitrogen 14mg/dL (8-26) Creatinine 1.0mg/dL (0.7-1.3) Estimated GFR (Cockcroft-Gault) 76.0 BUN/Creatinine Ratio 14 (6-20) Glucose Level 229mg/dL (70-99) Calcium Level 9.1mg/dL (8.5-10.1) Total Bilirubin 0.8mg/dL (0.2-1.0) Aspartate Amino Transf (AST/SGOT) 39U/L (15-37) Alanine Aminotransferase (ALT/SGPT) 42U/L (16-63) Alkaline Phosphatase 58U/L (46-116) Total Protein 7.1g/dL (6.4-8.2) Albumin 3.7g/dL (3.4-5.0) Albumin/Globulin Ratio 1.1 (1.0-1.7) Amylase Level 56U/L (25-115) Lipase 162U/L (73-393) Glucose (Fingerstick) 200mg/dL (70-99) 150mg/dL (70-99) 150mg/dL (70-99) Test 08/17/16 04:40 08/17/16 08:09 Sodium Level 142mmol/L (136-145) Potassium Level 4.0mmol/L (3.5-5.1) Chloride Level 107mmol/L (98-107) Carbon Dioxide Level 24mmol/L (21-32) Anion Gap 11 (6-14) Blood Urea Nitrogen 13mg/dL (8-26) Creatinine 0.8mg/dL (0.7-1.3) Estimated GFR (Cockcroft-Gault) 98.3 Glucose Level 168mg/dL (70-99) Calcium Level 8.4mg/dL (8.5-10.1) Glucose (Fingerstick) 160mg/dL (70-99) Laboratory Tests Test 08/16/16 11:23 08/16/16 16:22 08/16/16 20:54 08/17/16 04:40 Glucose (Fingerstick) 200mg/dL (70-99) 150mg/dL (70-99) 150mg/dL (70-99) Sodium Level 142mmol/L (136-145) Potassium Level 4.0mmol/L (3.5-5.1) Chloride Level 107mmol/L (98-107) Carbon Dioxide Level 24mmol/L (21-32) Anion Gap 11 (6-14) Blood Urea Nitrogen 13mg/dL (8-26) Creatinine 0.8mg/dL (0.7-1.3) Estimated GFR (Cockcroft-Gault) 98.3 Glucose Level 168mg/dL (70-99) Calcium Level 8.4mg/dL (8.5-10.1) Test 08/17/16 08:09 Glucose (Fingerstick) 160mg/dL (70-99) Problem List Problems Medical Problems: (1) Abdominal pain Status: Acute Assessment/Plan psbo vs ileus Xrays pending will follow up on xray continue NPO, bowel rest Problems: MARYSOL CORNELIUS MD 08/17/16 1006: SURGICAL PROGRESS NOTE Assessment/Plan Await xray report, prelim eval seems to suggest PSBO; plan for SB series Problems: MARTA SHIPMAN APRN Aug 17, 2016 09:42 MARYSOL CORNELIUS MD Aug 17, 2016 10:06
--- NOTE | 2016-08-17 10:49 | HP ---
ADMIT DATE: 08/16/2016 CHIEF COMPLAINT: Abdominal pain. HISTORY OF PRESENT ILLNESS: A 60-year-old white male with non-insulin dependent diabetes, coronary artery disease, previous colectomy and ileostomy, began having increasing abdominal pain and decreased ileostomy output about 12-24 hours prior to admission. There had been no vomiting, fever, chills or any other specific symptoms. CT scan showed evidence of what may be a partial small-bowel obstruction versus ileus and he has been monitored. He is n.p.o. since the time of admission without much improvement in symptoms. PAST HISTORY: Well-documented in the old chart. MEDICATIONS: Takes aspirin and Plavix for coronary artery bypass and has pretty good control with his Levemir and NovoLog insulin as of his last A1c. ALLERGIES: No known drug allergies. SOCIAL HISTORY: He is , nonsmoker, nondrinker. He is employed. FAMILY HISTORY: Unremarkable. REVIEW OF SYSTEMS: No other complaints. OBJECTIVE: ENT: All within normal limits. No icterus. NECK: No masses, nodes or bruits. LUNGS: Clear. CARDIOVASCULAR: Regular rate. No irregular beat, murmur or tachycardia. ABDOMEN: Distended, mildly-hyperresonant and diffusely tender without guarding or peristaltic rushes. EXTREMITIES: Good pedal and radial pulses. Only left radial pulse is absent after surgery. No edema. No joint or skin lesions. NEUROLOGIC: Physiologic and nonfocal. ASSESSMENT: 1. Abdominal pain, likely secondary to partial small-bowel obstruction, previous surgery. 2. Coronary artery disease. 3. Diabetes. 4. Renal status appears to be stable at this time. PLAN: We will add low dose Lovenox prophylaxis. Continue more vigorous hydration and observation with surgical consultation. SACHA DIGGS MD DR: AMBER/ronaldo JOB#: [id number] / [id number]
--- NOTE | 2016-08-17 10:51 | RAD ---
Acute abdomen series with chest, 3 views, 08/17/2016: History: Abdominal pain, partial small bowel obstruction An ileostomy overlies the right lower quadrant.. There is a mildly distended gas-filled small bowel loop extending up to the ileostomy site. A couple of small air-fluid levels are noted in small bowel loops proximal to this level. No free air is seen in the abdomen. There is no evidence of organomegaly. Scattered vascular calcifications are present. There has been a previous median sternotomy. The heart size and pulmonary vascularity are normal. A calcified granuloma is present in the right lung. No acute infiltrates are seen. IMPRESSION: Ongoing partial small bowel obstruction at the ileostomy site.
[2016-08-17 11:34] VITALS: BP 114/69
[2016-08-17 15:00] VITALS: BP 109/68
[2016-08-17 19:00] VITALS: BP 106/55
[2016-08-17 23:00] VITALS: BP 119/59
[2016-08-18] MEDS: IV DEXTROSE 5%-LACT RINGERS 1,000 ML IV SCH ×5 (00:31→23:45)
[2016-08-18] MEDS ORDERED: CONTRAST GIVEN MC PRN (07:00)
[2016-08-18] MEDS ORDERED: IOHEXOL 350 MG/ML 100ML VIAL. PO ONE (07:00)
--- NOTE | 2016-08-18 08:11 | PDOC ---
Provider Note Provider Note feels better, less pain, more iliostomy output- vss, glucose ok- repeat kub pending SACHA DIGGS MD Aug 18, 2016 08:11
[2016-08-18] MEDS: ENOXAPARIN 40 MG/0.4 ML DISP.SYRIN. SQ SCH (08:34)
[2016-08-18] MEDS: INSULIN DETEMIR 300 UNITS/3 ML INSULN.PEN. SQ SCH (09:42)
--- NOTE | 2016-08-18 10:24 | RAD ---
Small bowel series, 08/18/2016: History: Partial small bowel obstruction A preliminary abdominal image demonstrates a nonspecific gas pattern. Overhead and spot films were obtained following oral ingestion of nonionic contrast. 3.5 minutes of fluoroscopy time is utilized. 3 fluoroscopic spot images were recorded. There has been a previous colectomy with an ileostomy in the right lower quadrant. There is prompt passage of the contrast through the small bowel. The contrast appears in the ostomy bag at 20 minutes. Some of the small bowel loops are at the upper limits of normal in size. No significant fold thickening is seen. No obstructive process is evident. IMPRESSION: No current evidence of significant small bowel obstruction.
[2016-08-18] MEDS: HYDROMORPHONE 2 MG/ML VIAL. IV PRN (10:27)
[2016-08-18] MEDS: INSULIN ASPART 300 UNITS/3 ML INSULN.PEN SQ SCH ×3 (10:45→17:22)
[2016-08-18 11:00] VITALS: BP 112/73
--- NOTE | 2016-08-18 14:29 | PDOC ---
M[employer]A SHIP[employer] 08/18/16 1429: SURGICAL PROGRESS NOTE Subjective pain improved stooling now Vital Signs Vital Signs Date Time Temp Pulse Resp B/P Pulse Ox O2 Delivery O2 Flow Rate FiO2 08/18/16 11:00 97.8 63 112/73 95 Room Air 97.8 08/18/16 10:57 18 I&O Intake and Output 08/18/16 07:00 Intake Total 500 ml Balance 500 ml Intake Oral 0 ml IV Total 500 ml # Voids 5 General: Alert, Oriented X3, Cooperative, No acute distress Abdomen: Soft, No tenderness, Other (ostomy with stool) Labs Laboratory Tests Test 08/16/16 16:22 08/16/16 20:54 08/17/16 04:40 08/17/16 08:09 Glucose (Fingerstick) 150mg/dL (70-99) 150mg/dL (70-99) 160mg/dL (70-99) Sodium Level 142mmol/L (136-145) Potassium Level 4.0mmol/L (3.5-5.1) Chloride Level 107mmol/L (98-107) Carbon Dioxide Level 24mmol/L (21-32) Anion Gap 11 (6-14) Blood Urea Nitrogen 13mg/dL (8-26) Creatinine 0.8mg/dL (0.7-1.3) Estimated GFR (Cockcroft-Gault) 98.3 Glucose Level 168mg/dL (70-99) Calcium Level 8.4mg/dL (8.5-10.1) Test 08/17/16 10:16 08/17/16 16:31 08/17/16 21:07 08/18/16 10:42 Glucose (Fingerstick) 215mg/dL (70-99) 180mg/dL (70-99) 179mg/dL (70-99) 195mg/dL (70-99) Laboratory Tests Test 08/17/16 16:31 08/17/16 21:07 08/18/16 10:42 Glucose (Fingerstick) 180mg/dL (70-99) 179mg/dL (70-99) 195mg/dL (70-99) Problem List Problems Medical Problems: (1) Abdominal pain Status: Acute Assessment/Plan SBFT no obstruction start clears Problems: MARYSOL CORNELIUS MD 08/18/16 1632: SURGICAL PROGRESS NOTE Assessment/Plan Reviewed, agree with above Problems: MARTA SHIPMAN APRN Aug 18, 2016 14:29 MARYSOL CORNELIUS MD Aug 18, 2016 16:32
[2016-08-18 15:13] VITALS: BP 119/72
[2016-08-18 19:00] VITALS: BP 117/72
[2016-08-18 23:00] VITALS: BP 140/65
[2016-08-19] MEDS: IV DEXTROSE 5%-LACT RINGERS 1,000 ML IV SCH ×2 (01:07→06:25)
[2016-08-19 07:00] VITALS: BP 123/75
[2016-08-19] MEDS: INSULIN DETEMIR 300 UNITS/3 ML INSULN.PEN. SQ SCH (08:14)
[2016-08-19] MEDS: ENOXAPARIN 40 MG/0.4 ML DISP.SYRIN. SQ SCH (08:14)
[2016-08-19] MEDS: INSULIN ASPART 300 UNITS/3 ML INSULN.PEN SQ SCH ×3 (08:23→17:28)
--- NOTE | 2016-08-19 08:29 | PDOC ---
Provider Note Provider Note vss, better output- xr ok, on cl now- labs/glucose good- resume some po meds ,a djust insulin as diet progresses SACHA DIGGS MD Aug 19, 2016 08:29
[2016-08-19] MEDS: ASPIRIN ENTERIC COATED 81 MG TABLET.DR. PO SCH (09:17)
[2016-08-19] MEDS: DOXAZOSIN MESYLATE 1 MG TABLET PO SCH (09:17)
[2016-08-19] MEDS: METOPROLOL SUCC 24HR ER 25 MG TAB.ER.24H. PO SCH (09:17)
[2016-08-19] MEDS: CLOPIDOGREL BISULFATE 75 MG TABLET PO SCH (09:17)
[2016-08-19] MEDS ORDERED: INSULIN DETEMIR 300 UNITS/3 ML INSULN.PEN. SQ SCH (10:00)
--- NOTE | 2016-08-19 10:02 | PDOC ---
PROGRESS NOTES Subjective Subjective doing well, having good ileostomy output, no pain, landry clears Objective Objective Vital Signs Date Time Temp Pulse Resp B/P Pulse Ox O2 Delivery O2 Flow Rate FiO2 08/19/16 09:17 70 123/75 08/19/16 07:00 97.9 18 95 Room Air 97.9 Intake and Output 08/19/16 07:00 Intake Total 1420 ml Balance 1420 ml Intake Oral 100 ml IV Total 1000 ml Other 320 ml # Voids 2 Physical Exam Abdomen: Soft, No tenderness Heart: Regular rate Extremities: No clubbing, No cyanosis General: Alert, Oriented X3 Lungs: Clear to auscultation Neuro: Normal speech Psych/Mental Status: Mental status NL Assessment Assessment Problems Medical Problems: (1) Abdominal pain Status: Acute Plan Plan of Care advance diet, consider DC today if tolerates po Comment Review of Relevant I have reviewed the following items tana (where applicable) has been applied. Labs Laboratory Tests Test 08/17/16 10:16 08/17/16 16:31 08/17/16 21:07 08/18/16 10:42 Glucose (Fingerstick) 215mg/dL (70-99) 180mg/dL (70-99) 179mg/dL (70-99) 195mg/dL (70-99) Test 08/18/16 16:50 08/18/16 20:45 08/19/16 08:04 Glucose (Fingerstick) 173mg/dL (70-99) 143mg/dL (70-99) 190mg/dL (70-99) Laboratory Tests Test 08/18/16 10:42 08/18/16 16:50 08/18/16 20:45 08/19/16 08:04 Glucose (Fingerstick) 195mg/dL (70-99) 173mg/dL (70-99) 143mg/dL (70-99) 190mg/dL (70-99) Medications Current Medications Sodium Chloride (Iv Sodium Chloride 0.9% 1000ml Bag) 1,000 ml @ 100 mls/hr 1X ONCE IV Last administered on 08/16/16 08:16; Start 08/16/16 at 08:00; Stop at 17:59; Status DC Fentanyl Citrate (Fentanyl 2ml Vial) 50 mcg 1X ONCE IV Last administered on 07:53; Start 08/16/16 at 08:00; Stop 08/16/16 at 08:01; Status DC Hydromorphone HCl (Dilaudid) 0.5 mg 1X ONCE IV Last administered on 08/16/16 08:31; Start 08/16/16 at 08:45; Stop 08/16/16 at 08:46; Status DC Ondansetron HCl 4 mg 4 mg PRN Q8HRS PRN IV NAUSEA/VOMITING Last administered on 08/16/16 10:29; Start 08/16/16 at 08:45; Stop 08/17/16 at 08:44; Status DC Sodium Chloride (Iv Sodium Chloride 0.9% 1000ml Bag) 1,000 ml @ 100 mls/hr Q10H IV Last administered on 08/16/16 17:23; Start 08/16/16 at 10:00; Stop at 08:33; Status DC Hydromorphone HCl (Dilaudid) 0.5 mg Q2HR IV Last administered on 08/16/16 13: 44; Start 08/16/16 at 10:00; Stop 08/16/16 at 14:31; Status DC Insulin Aspart (Novolog) 0-9 UNITS TIDWMEALS SQ Last administered on 08/19/16 08:23; Start 08/16/16 at 12:00 Dextrose 12.5 gm PRN Q15MIN PRN IV SEE COMMENTS; Start 08/16/16 at 09:45 Insulin Detemir (Levemir) 30 units DAILY10 SQ ; Start 08/16/16 at 10:00; Stop at 08:07; Status DC Hydromorphone HCl 0.5 mg 0.5 mg PRN Q2HR PRN IV PAIN Last administered on 10:27; Start 08/16/16 at 14:30 Sodium Chloride 1,000 ml @ 100 mls/hr Q10H IV ; Start 08/16/16 at 18:30; Stop 08/17/16 at 07:45; Status DC Dextrose/Lactated Ringer's (Iv D5%-Lr) 1,000 ml @ 75 mls/hr [id number] IV Last administered on 08/19/16 01:07; Start 08/17/16 at 07:45; Stop 08/19/16 at 08:41 ; Status DC Enoxaparin Sodium (Lovenox 40mg Syringe) 40 mg Q24H SQ Last administered on 08:14; Start 08/17/16 at 08:00 Iohexol (Omnipaque 350 Mg/ml) 400 ml 1X ONCE PO Last administered on 09:10; Start 08/18/16 at 07:00; Stop 08/18/16 at 07:01; Status DC Info (Do NOT chart on this entry -- for MONITORING) 1 each PRN DAILY PRN MC SEE COMMENTS; Start 08/18/16 at 07:00; Stop 08/20/16 at 06:59 Insulin Detemir (Levemir) 36 units DAILY10 SQ ; Start 08/18/16 at 10:00; Stop at 08:28; Status DC Aspirin (Ecotrin) 81 mg DAILYWBKFT PO Last administered on 08/19/16 09:17; Start 08/19/16 at 09:00 Clopidogrel Bisulfate (Plavix) 75 mg DAILY08 PO Last administered on 08/19/16 09:17; Start 08/19/16 at 09:00 Metoprolol Succinate (Toprol Xl) 25 mg DAILY PO Last administered on 08/19/16 09:17; Start 08/19/16 at 09:00 Doxazosin Mesylate (Cardura) 2 mg DAILY PO Last administered on 08/19/16 09:17 ; Start 08/19/16 at 09:00 Insulin Detemir (Levemir) 40 units DAILY10 SQ ; Start 08/19/16 at 10:00 Active Scripts Active Zofran Odt (Ondansetron) 4 Mg Tab.rapdis 1 Tab SL PRN Q8HRS PRN Novolog Flexpen (Insulin Aspart) 100 Unit/1 Ml Insuln.pen 15 Units SQ TIDAC 30 Days Reported Levemir (Insulin Detemir) 100 Unit/1 Ml Vial 1 Unit SQ Doxazosin Mesylate 2 Mg Tablet 1 Tab PO DAILY Metoprolol Succinate ( Xl ) (Metoprolol Succinate) 25 Mg Tab.er.24h 25 Mg PO DAILY Aspirin Ec (Aspirin) 325 Mg Tablet.dr 1 Tab PO DAILY last dose was this am next dose tomorrow am Metformin Hcl 500 Mg Tablet 500 Mg PO TIDWMEALS not given in hospital may resume with supper tonight Atorvastatin Calcium 10 Mg Tablet 10 Mg PO HS last dose last night next dose tonight Plavix (Clopidogrel Bisulfate) 75 Mg Tablet 75 Mg PO DAILY08 not given in hospital next dose in am Vitals/I & O Vital Sign - Last 24 Hours 08/18/16 08/18/16 08/18/16 08/18/16 10:27 10:57 11:00 15:13 Temp 97.8 98.0 97.8 98.0 Pulse 63 72 Resp 18 18 18 B/P 112/73 119/72 Pulse Ox 95 92 O2 Delivery Room Air Room Air Room Air Room Air 08/18/16 08/18/16 08/18/16 08/19/16 19:00 20:00 23:00 07:00 Temp 99.0 97.9 97.9 99.0 97.9 97.9 Pulse 61 57 70 Resp 18 B/P 117/72 140/65 123/75 Pulse Ox 99 93 95 O2 Delivery Nasal Cannula Room Air Room Air Room Air 08/19/16 08/19/16 09:17 09:17 Pulse 70 70 B/P 123/75 123/75 Intake and Output 08/18/16 08/18/16 08/19/16 15:00 23:00 07:00 Intake Total 1320 ml 100 ml Balance 1320 ml 100 ml MARYSOL CORNELIUS MD Aug 19, 2016 10:02
[2016-08-19 11:00] VITALS: BP 111/76
[2016-08-19 15:00] VITALS: BP 107/61
[2016-08-19 19:00] VITALS: BP 114/61
[2016-08-19 23:00] VITALS: BP 123/73
[2016-08-20 03:12] VITALS: BP 114/67
[2016-08-20 07:18] VITALS: BP 118/73
--- NOTE | 2016-08-20 07:44 | DISCH ---
DISCHARGE INSTRUCTIONS Condition on Discharge Condition on Discharge: Stable Activity After Discharge Activity Instructions for Disc: No restrictions Diet after Discharge Diet after Discharge: Diabetic No Calorie Level Follow-Up Follow up with: as scheduled SACHA DIGGS MD Aug 20, 2016 07:44
--- NOTE | 2016-08-20 07:47 | PDOC ---
Provider Note Provider Note [id number] SACHA DIGGS MD Aug 20, 2016 07:47
[2016-08-20] MEDS: ENOXAPARIN 40 MG/0.4 ML DISP.SYRIN. SQ SCH (08:00)
[2016-08-20 08:46] VITALS: BP 118/73
[2016-08-20] MEDS: CLOPIDOGREL BISULFATE 75 MG TABLET PO SCH (08:46)
[2016-08-20] MEDS: ASPIRIN ENTERIC COATED 81 MG TABLET.DR. PO SCH (08:46)
[2016-08-20] MEDS: DOXAZOSIN MESYLATE 1 MG TABLET PO SCH (08:46)
[2016-08-20] MEDS: METOPROLOL SUCC 24HR ER 25 MG TAB.ER.24H. PO SCH (08:46)
[2016-08-20] MEDS: INSULIN ASPART 300 UNITS/3 ML INSULN.PEN SQ SCH (08:55)
--- NOTE | 2016-08-20 15:03 | DS ---
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 KUB showed evidence of partial small-bowel obstruction at the ileostomy site and subsequent small bowel. X-ray showed no evidence of small-bowel obstruction. Chemistry profile and CBC were unremarkable. He was treated with IV fluids and GI rest. The symptoms gradually resolved and was able to advance to clear liquids and regular diet without problems. He is comfortable to be followed as an outpatient at this point. FINAL DIAGNOSIS: 1. Partial small-bowel obstruction, resolved, nonsurgically. OPERATIONS, PROCEDURES, COMPLICATIONS: None. CONSULTATIONS: Dr. Arteaga ____. DISPOSITION: Home. Meds remain the same. Diabetic diet, activity as tolerated. Office followup is scheduled for routine medical care regarding coronary artery disease and diabetes. PROGNOSIS: Good. SACHA DIGGS MD DR: AMBER/ronaldo JOB#: [id number] / [id number]
== END 2016-08-20 11:00 | disposition home or self-care (01) | DRG 390 ==
LOC: ER 07:06 → 5 NORTH 08:38
PROVIDERS: ADMIT Family Medicine; ATTEND Family Medicine
DX: K56.60 Unspecified intestinal obstruction (principal); E11.9 Type 2 diabetes mellitus without complications; E78.00 Pure hypercholesterolemia, unspecified; I10 Essential (primary) hypertension; I25.10 Atherosclerotic heart disease of native coronary artery without angina pectoris; Z85.038 Personal history of other malignant neoplasm of large intestine; Z90.49 Acquired absence of other specified parts of digestive tract; Z93.2 Ileostomy status; Z93.3 Colostomy status; Z95.1 Presence of aortocoronary bypass graft; Z98.890 Other specified postprocedural states
CPT/HCPCS: 36415; 74022; 74250; 80048; 80053; 82150; 82947; 83690; 85007; 85027; 96361; 96374; 96375; J1170; J1650; J1815; J2405; J3010; J7030; Q9967; 99285-25

== ENCOUNTER → 2016-10-21 | Outpatient (CLI) | payer OTHER ==
--- NOTE | 2016-10-21 13:10 | RAD ---
Left hip, 2 views, 10/21/2016: History: Hip pain No fracture or dislocation is identified. There is mild narrowing of the hip joint with mild marginal spurring. Scattered arterial calcifications are present. IMPRESSION: 1. Mild degenerative change of the left hip joint. 2. No acute bony abnormality is detected.
== END | disposition home or self-care (01) ==
LOC: RAD 10:46
PROVIDERS: ATTEND Family Medicine
DX: M16.12 Unilateral primary osteoarthritis, left hip (principal)
CPT/HCPCS: 73502

== ENCOUNTER → 2016-12-04 | Outpatient (CLI) | payer OTHER ==
[~2016-12-04] MED LIST changes: -ASPI325T4 PO; +ASPI325T8 PO; -CLOP75TA27 PO; +CLOP75TA57 PO; -HYDR-2666 PO; +HYDR-2758 PO; -PIOG30TA20 PO; +PIOG30TA41 PO
--- NOTE | 2016-12-04 16:56 | CARD ---
APPROVED REPORT EXAM: Two-dimensional and M-mode echocardiogram with Doppler and color Doppler. Other Information Quality : GoodHR: 64bpm Rhythm : NSR INDICATION Dyspnea Cardiac Disease: CAD Chest Pain 2D DIMENSIONS RVDd3.3 (2.9-3.5cm)Left Atrium(2D)3.2 (1.6-4.0cm) IVSd0.7 (0.7-1.1cm)Aortic Root(2D)2.7 (2.0-3.7cm) LVDd5.9 (3.9-5.9cm)LVOT Diameter2.4 (1.8-2.4cm) PWd0.9 (0.7-1.1cm)LVDs4.0 (2.5-4.0cm) FS (%) 32.3 %SV102.9 ml LVEF(%)60.0 (>50%) Aortic Valve AoV Peak Paul.125.8cm/sAoV VTI26.9cm AO Peak GR.6.3mmHgLVOT Peak Paul.103.6cm/s AO Mean GR.3mmHgAVA (VMAX)3.87cm2 Mitral Valve MV E Zvnsgkms42.6cm/sMV E Peak Gr.5mmHg MV DECEL [id number] A Tjehlbfo31.6cm/s MV E Mean Gr.2mmHgE/A Ratio2.3 MV A [id number] Pulmonary Valve PV Peak Htfuqjfu459.8cm/s Pulmonary Vein S1 Lqgecthf05.7cm/sD2 Udsbhehp65.0cm/s PVa [id number] LEFT VENTRICLE The left ventricle is normal size. There is normal left ventricular wall thickness. The left ventricu lar systolic function is normal and the ejection fraction is within normal range. The Ejection Fracti on is 60%. There is normal LV segmental wall motion. Transmitral Doppler flow pattern is Grade II-pse udonormal filling dynamics. RIGHT VENTRICLE The right ventricle is normal size. There is normal right ventricular wall thickness. The right ventr icular systolic function is normal. ATRIA The left atrium size is normal. The right atrium size is normal. The interatrial septum is intact wit h no evidence for an atrial septal defect or patent foramen ovale as noted on 2-D or Doppler imaging. AORTIC VALVE The aortic valve is mildly sclerotic. The aortic valve is trileaflet. Doppler and Color Flow revealed trace aortic regurgitation. There is no significant aortic valvular stenosis. MITRAL VALVE Mitral annular calcification is mild. The mitral valve leaflets are thickened. There is no evidence o f mitral valve prolapse. There is no mitral valve stenosis. Doppler and Color Flow revealed mild mitr al regurgitation. TRICUSPID VALVE Doppler and Color Flow revealed no tricuspid valve regurgitation noted. Unable to determine pulmonary artery pressure at exam time. PULMONIC VALVE Doppler and Color Flow revealed no pulmonic valvular regurgitation. GREAT VESSELS The aortic root is normal in size. The ascending aorta is mildly dilated. The pulmonary artery is nor mal. The IVC is normal in size and collapses >50% with inspiration. PERICARDIAL EFFUSION There is a very small pericardial effusion that is mostly posterior. Critical Notification Critical Value: No <Conclusion> The left ventricular systolic function is normal and the ejection fraction is within normal range. The Ejection Fraction is 60%. Transmitral Doppler flow pattern is Grade II-pseudonormal filling dynamics. The left atrium size is normal. The right atrium size is normal. Doppler and Color Flow revealed trace aortic regurgitation. The aortic valve is mildly sclerotic. The aortic valve is trileaflet. Doppler and Color Flow revealed mild mitral regurgitation. Mitral annular calcification is mild. The mitral valve leaflets are thickened. Doppler and Color Flow revealed no tricuspid valve regurgitation noted. Unable to determine pulmonary artery pressure at exam time. Doppler and Color Flow revealed no pulmonic valvular regurgitation. The ascending aorta is mildly dilated. There is a very small pericardial effusion that is mostly posterior.
== END | disposition home or self-care (01) ==
LOC: ECHO 12:22
PROVIDERS: ATTEND Internal Medicine Cardiovascular Disease
DX: I08.0 Rheumatic disorders of both mitral and aortic valves (principal); R07.9 Chest pain, unspecified; I25.10 Atherosclerotic heart disease of native coronary artery without angina pectoris; R42 Dizziness and giddiness
CPT/HCPCS: 93306

== ENCOUNTER → 2017-01-06 | Day surgery (SDC) | payer OTHER ==
[~2017-01-06] VITALS: Ht 177.8 cm; Wt 98.4 kg
[~2017-01-06] MED LIST changes: +0.9 % SODIUM CHLORIDE 50 ML VIAL. IJ ONE; +BUPIVACAINE MPF 0.5% 30 ML VIAL. ONE; +DOCU-109 PO; +HYDR-971 PO; +HYDROmorphone 2 MG/ML VIAL IV PRN; +IV RINGERS,LACTATED 1000ML 1,000 ML IV SCH; +LIDOCAINE 1% 1 ML SYRINGE. ID PRN; +LIDOCAINE 1% PF 30 ML VIAL. ONE; +LIDOCAINE 2% PF Vial for OR 5 ML VIAL. ONE; +MIDAZOLAM HCL/PF 2 MG/2 ML VIAL. ONE; +MORPHINE SULFATE 2 MG/ML DISP.SYRIN. IV PRN; +ONDANSETRON PF 4 MG/2 ML VIAL. IV PRN; +PROCHLORPERAZINE 10 MG/2 ML VIAL. IV PRN; +PROPOFOL 50 ML IV ONE; +fentaNYL PF VIAL 100 MCG/2 ML VIAL IV PRN; +fentaNYL PF VIAL 100 MCG/2 ML VIAL ONE
--- NOTE | 2017-01-06 07:23 | DISCH ---
DISCHARGE INSTRUCTIONS Condition on Discharge Condition on Discharge: Stable Activity After Discharge Activity Instructions for Disc: Other, see below Bathing Instructions: Shower-keep dressing dry Lifting Instructions after Dis: No heavy lifting, No pulling or pushing Weight Bearing Status after Di: Non weight bearing Diet after Discharge Diet after Discharge: Regular Wound Incision Care Wound/Incision Care: Ice to area for comfort, Keep wound/cast CDI, Keep wound elevated, Do not change dressing Contacting the DRBabar after DC Call your doctor for: Concerns you may have Follow-Up Follow up with: Venkata in 2wks VICENTA EVANS II, MD Jan 06, 2017 07:23
--- NOTE | 2017-01-06 07:27 | PDOC4 ---
Operative Note Operative Note Date of surgery: 01/06/2017 Surgeon: Ulises Evans MD Preoperative diagnosis: Left carpal tunnel syndrome Postoperative diagnosis: Same Procedure performed: Open left carpal tunnel release Anesthesia: [place] block Complications: None Blood loss: 5 mL Tourniquet time: 26 minutes Reason for procedure: garrett is a very pleasant 61-year-old gentleman who had tried and failed conservative therapy such as steroid injection, nighttime splinting, but was unable to take NSAIDs due to his cardiovascular history, and had progressive carpal tunnel syndrome times. Clinical and examination were consistent with the above preoperative diagnosis and after failure of conservative therapies we had a discussion of the risks, benefits, and alternatives to the above surgery and he elected to proceed. Description of procedure: Patient was greeted in the preoperative area where the correct extremity was marked and verified. He was taken back to the operative suite and his antibiotics were started and row. Once in the operating room, he had successful placement of a regional nerve block, the [place] block, by the anesthesiologist. We then attached the arm board to the operating room table then proceeded to prep and drape left upper extremity in our usual sterile fashion. We conducted our standard preoperative timeout. I then made an incision in his palm distal to his distal wrist crease overlying the transverse carpal ligament. I incised skin with a scalpel and used bipolar cautery to cauterize bleeders. I bluntly dissected down to the palmar fascia and incised this in line with the skin incision and then placed my self-retaining retractor. I used a scalpel to identified and transected the transverse carpal ligament. I then placed a Ragnell retractor at the distal aspect of the incision to visualize the distal extent of the transverse carpal ligament and spread above and below this with tenotomies and then fully released it. I then repositioned my Ragnell retractor the proximal aspect of the incision and spread above and below the distal antebrachial fascia and released this in o the forearm in an ulnar directed fashion. After this, I used the tip of the tenotomies to feel long the course my release to make sure I encountered a complete release, which I was confident had. I then irrigated out the operative field and proceeded to remove my self-retaining retractor and close skin with 2- 0 nylon in a horizontal mattress fashion. Prior to accomplishing wound closure, all counts report is correct 2. No complications. The arm was cleansed and dried and a sterile dressing was applied followed by a bulky soft dressing. At the conclusion of surgery the tourniquet was let down and the patient was awakened. He was transferred gently supine to the recovery room cart and taken to the PACU in stable and extubated condition. Postop plan is for active range of motion in his fingers and elevation. He is to avoid lifting anything heavy. We will see him back in 2 weeks, sooner should a problem arise. ULISES EVANS II, MD Jan 06, 2017 07:27
[2017-01-06 08:47] VITALS: BP 106/77
== END ==
LOC: SURG 06:07
PROVIDERS: ATTEND Orthopaedic Surgery Sports Medicine
DX: G56.02 Carpal tunnel syndrome, left upper limb (principal); E11.36 Type 2 diabetes mellitus with diabetic cataract; I25.10 Atherosclerotic heart disease of native coronary artery without angina pectoris; I25.2 Old myocardial infarction; I50.9 Heart failure, unspecified; E78.00 Pure hypercholesterolemia, unspecified; J44.9 Chronic obstructive pulmonary disease, unspecified; K22.70 Barrett's esophagus without dysplasia; M19.90 Unspecified osteoarthritis, unspecified site; F32.9 Major depressive disorder, single episode, unspecified; F17.200 Nicotine dependence, unspecified, uncomplicated; Z82.49 Family history of ischemic heart disease and other diseases of the circulatory system; Z83.3 Family history of diabetes mellitus; Z83.6 Family history of other diseases of the respiratory system; Z98.42 Cataract extraction status, left eye; Z98.41 Cataract extraction status, right eye; Z85.048 Personal history of other malignant neoplasm of rectum, rectosigmoid junction, and anus; Z90.49 Acquired absence of other specified parts of digestive tract; Z98.890 Other specified postprocedural states; Z95.1 Presence of aortocoronary bypass graft; Z95.5 Presence of coronary angioplasty implant and graft
CPT/HCPCS: 64721; 82962; J2001; J2250; J2704; J3010; J3490; J7120

== ENCOUNTER 2017-03-10 08:56 | Day surgery (SDC) | payer OTHER ==
[~2017-03-10] VITALS: Ht 177.8 cm; Wt 99.8 kg
[~2017-03-10 08:56] MED LIST changes: -0.9 % SODIUM CHLORIDE 50 ML VIAL. IJ ONE; -LIDOCAINE 2% PF Vial for OR 5 ML VIAL. ONE; +METO-239 PO; -METO25TA9 PO; -MIDAZOLAM HCL/PF 2 MG/2 ML VIAL. ONE; -PROPOFOL 50 ML IV ONE; -fentaNYL PF VIAL 100 MCG/2 ML VIAL ONE
[2017-03-10] MEDS ORDERED: fentaNYL PF VIAL 100 MCG/2 ML VIAL ONE (09:42)
[2017-03-10] MEDS ORDERED: MIDAZOLAM HCL/PF 2 MG/2 ML VIAL. ONE (09:42)
[2017-03-10] MEDS ORDERED: LIDOCAINE 2% PF Vial for OR 5 ML VIAL. ONE ×3 (09:43)
[2017-03-10] MEDS ORDERED: PROPOFOL 50 ML IV ONE (09:43)
[2017-03-10] MEDS ORDERED: 0.9 % SODIUM CHLORIDE 50 ML VIAL. IJ ONE (09:44)
--- NOTE | 2017-03-10 10:44 | DISCH ---
DISCHARGE INSTRUCTIONS Condition on Discharge Condition on Discharge: Stable Activity After Discharge Activity Instructions for Disc: Other, see below Other activity instructions: wiggle fingers Bathing Instructions: Shower-keep dressing dry Lifting Instructions after Dis: No heavy lifting, No pulling or pushing Weight Bearing Status after Di: As tolerated Diet after Discharge Diet after Discharge: Regular Wound Incision Care Wound/Incision Care: Ice to area for comfort, Keep wound/cast CDI, Keep wound elevated, Change dressing Other wound/incision instructi: ok to change dressing after 2 days Contacting the DRBabar after DC Call your doctor for: Concerns you may have Follow-Up Follow up with: Venkata in 2wks VICENTA EVANS II, MD Mar 10, 2017 10:44
--- NOTE | 2017-03-10 10:45 | PDOC ---
BRIEF OPERATIVE NOTE Date: Mar 10, 2017 Pre-Op Diagnosis R CTS Post-Op Diagnosis same Procedure Performed Open R CTR Surgeon Venkata Anesthesia Type: Regional Blood Loss 5mL Complications none VICENTA EVANS II, MD Mar 10, 2017 10:45
--- NOTE | 2017-03-10 11:50 | OP ---
DATE OF SURGERY: 03/10/2017 SURGEON: Ulises Evans MD MANAGER TRAINEE: None. PREOPERATIVE DIAGNOSIS: Right carpal tunnel syndrome. POSTOPERATIVE DIAGNOSIS: Right carpal tunnel syndrome. PROCEDURE PERFORMED: Open right carpal tunnel release. COMPLICATIONS: None. ESTIMATED BLOOD LOSS: 5 mL. TOURNIQUET TIME: 25 minutes. ANESTHESIA: [place] block. REASON FOR PROCEDURE: The patient is a very pleasant 61-year-old gentleman who underwent successful left carpal tunnel release as this was his more symptomatic side. Clinical and electromyographic evidence were reviewed. He had bilateral carpal tunnel and failed conservative therapies as per my outpatient note such as an injection, nighttime splinting and anti-inflammatories for his right side as well. He elected to proceed with the right side since he felt he had recovered well from his left carpal tunnel release several weeks ago with myself. We again discussed risks, benefits, alternatives and he elected to proceed. DESCRIPTION OF PROCEDURE: The patient was greeted in the preoperative area by myself. The correct extremity was marked and verified. He was taken back to the operative suite and antibiotics started en route. Once in the OR, transferred gently supine to the OR table and secured to the bed with all pressure points padded. He underwent a [place] block by the anesthesiology team followed by conscious sedation. We then proceeded to prep and drape the right upper extremity in our usual sterile fashion and then conducted our standard preoperative timeout. I then made an incision in his palm through a volar crease in his mid palm from his distal wrist crease distally and dissected the skin with a mosquito down the level of palmar fascia. Bipolar cautery was used for a couple of bleeders. His palmar fascia was incised in line with the skin incision. I placed my self-retraining retractor and continued my sharp dissection down to identify the transverse carpal ligament, which I released sharply. After this, I placed a Ragnell retractor at the distal extent of the incision and spread above and below the fascia an another thick band and then released this. I then repositioned my Ragnell retractor at the proximal extent of the incision spread above and below the distal antebrachial fascia and releases in an ulnar directed fashion. I then inspected my operative site and used a tip of the tenotomy scissors to palpate along the course of nerve to ensure I accomplished a complete release, which I felt confident I had. After this, I irrigated out the operative field with a sterile normal saline and then closed skin with a 2-0 nylon in a horizontal mattress fashion. The arm and hand were then cleansed and dried. A Xeroform sterile gauze and a bulky soft dressing were then applied. He tolerated surgery well. The tourniquet was left in place for 25 minutes. No complications. At the conclusion of surgery, he was awakened from his sedation and transferred gently supine to the recovery room cart and taken to PACU in stable and extubated condition. Postop plan is to discharge the patient home. I had written out the postoperative instructions including wound care and encouraging active and gentle range of motion at the fingers. We will see him back in 2 weeks, sooner should problems arise. ULISES EVANS MD DR: ANA/ronaldo JOB#: [id number] / [id number] LEONOR
[2017-03-10] MEDS ORDERED: HYDROcodone/APAP 5/325MG 1 TAB TABLET PO ONE (12:00)
[2017-03-10 12:40] VITALS: BP 125/67
== END 2017-03-10 12:40 | disposition home or self-care (01) ==
LOC: SURG 08:56 → EDSTATUS 09:00 → SURG 12:40
PROVIDERS: ATTEND Orthopaedic Surgery Sports Medicine
DX: G56.01 Carpal tunnel syndrome, right upper limb (principal); I50.9 Heart failure, unspecified; I25.10 Atherosclerotic heart disease of native coronary artery without angina pectoris; E78.00 Pure hypercholesterolemia, unspecified; J44.9 Chronic obstructive pulmonary disease, unspecified; E11.9 Type 2 diabetes mellitus without complications; F32.9 Major depressive disorder, single episode, unspecified; F17.200 Nicotine dependence, unspecified, uncomplicated; Z90.49 Acquired absence of other specified parts of digestive tract; Z86.14 Personal history of Methicillin resistant Staphylococcus aureus infection; Z87.39 Personal history of other diseases of the musculoskeletal system and connective tissue; M19.91 Primary osteoarthritis, unspecified site; Z98.41 Cataract extraction status, right eye; Z98.42 Cataract extraction status, left eye
CPT/HCPCS: 64721; 82962; J0690; J2250; J2704; J3010; J3490; J2001

== ENCOUNTER → 2017-07-19 | Outpatient (CLI) | payer OTHER | END | disposition home or self-care (01) | LOC: RAD 09:35 | DX: M25.512 Pain in left shoulder (principal) | CPT/HCPCS: 73030 ==

== ENCOUNTER → 2017-08-23 | Outpatient (CLI) | payer OTHER | END | disposition home or self-care (01) | LOC: RAD 14:12 | DX: M47.897 Other spondylosis, lumbosacral region (principal); M48.07 Spinal stenosis, lumbosacral region | CPT/HCPCS: 72100 ==

== ENCOUNTER → 2017-11-17 | Outpatient (CLI) | payer OTHER | END | disposition home or self-care (01) | LOC: KCIC MRI 15:40 | DX: M54.12 Radiculopathy, cervical region (principal) | CPT/HCPCS: 72141 ==

== ENCOUNTER → 2018-04-13 | Day surgery (SDC) | payer OTHER ==
[~2018-04-13] VITALS: Ht 177.8 cm; Wt 101.3 kg
[~2018-04-13] MED LIST changes: +DESFLURANE UP TO 15 MINUTES. IH ONE; +DEXAMETHASONE SOD PHOS 20 MG/5 ML VIAL. ONE; +HYDROcodone/APAP 5/325MG 1 TAB TABLET PO ONE; -LIDOCAINE 1% 1 ML SYRINGE. ID PRN; +LIDOCAINE 1% PF 2 ML VIAL. ID PRN; +LIDOCAINE 2% PF Vial for OR 5 ML VIAL. ONE; +METF500T16 PO; -METF500T4 PO; +MIDAZOLAM HCL/PF 2 MG/2 ML VIAL. ONE; -MORPHINE SULFATE 2 MG/ML DISP.SYRIN. IV PRN; +MORPHINE SULFATE 2 MG/ML VIAL. IV PRN; +ONDA8TAB12 PO; +ONDANSETRON PF 4 MG/2 ML VIAL. ONE; +PHENYLEPHRINE in 0.9% NACL PF 1 MG/10 ML SYRINGE. IV ONE; +PROPOFOL 20 ML IV ONE; +SACU1TAB PO; +fentaNYL PF VIAL 100 MCG/2 ML VIAL ONE
--- NOTE | 2018-04-13 10:50 | DISCH ---
DISCHARGE INSTRUCTIONS Condition on Discharge Condition on Discharge: Stable Activity After Discharge Activity Instructions for Disc: Other, see below Bathing Instructions: Shower-keep dressing dry Lifting Instructions after Dis: No heavy lifting, No pulling or pushing Exercise Instruction after Dis: Progress as tolerated Driving Instructions after Dis: Do not drive today Weight Bearing Status after Di: As tolerated Diet after Discharge Diet after Discharge: Regular Diet Texture: Regular Liquid Texture: Thin Liquid Wound Incision Care Wound/Incision Care: Ice to area for comfort, Keep wound/cast CDI, Keep wound elevated, Change dressing Other wound/incision instructi: ok to change dressing after 2 days Checks after Discharge Checks after discharge: Check blood sugar, ac/hs Contacting the DR. after DC Call your doctor for: Concerns you may have Follow-Up Follow up with: Venkata in 2 wks VICENTA EVANS II, MD Apr 13, 2018 10:50
--- NOTE | 2018-04-13 13:04 | PDOC4 ---
Operative Note Operative Note Date of surgery: 04/13/2018 Surgeon: Ulises Evans Rail Car Repairman: Charity Galvin, art therapy certified supervisor Preoperative diagnosis: Left cubital tunnel syndrome Postoperative diagnoses: Same Procedures performed: Open left cubital tunnel decompression Anesthesia: Gen. Blood loss: 10 mL Tourniquet time: Less than 30 minutes Findings: Normal-appearing ulnar nerve Complications: None Reason for procedure: Patient is a very pleasant gentleman who had known for quite some time for complaints of numbness and tingling in digits 4 and 5 on his left hand. His clinical and electromyographic examinations were consistent with the above preoperative diagnosis and after failure of conservative therapies including splinting, injections and anti-inflammatories, we had a discussion of the risks, benefits, and alternatives to surgery and he wished to proceed. Description of procedure: Patient was greeted in the preoperative area by myself for the correct extremity was verified and marked. He was taken to the operative suite and his antibiotics were started as he was brought back. Once in the operating room, he was transferred gently supine to the operating table and secured to the bed with all pressure points padded. The hand board attachment was secured to the operating room table. Nonsterile tourniquet applied and secured in place to his left upper extremity. Left upper extremity was then prepped and draped in our usual sterile fashion and we conducted our standard preoperative timeout. After this, I palpated and marked surface anatomy and joycelyn a line from my incision over his medial elbow referencing his medial epicondyle. The extremity was exsanguinated with an Esmarch and tourniquet insufflated to 250 mmHg. After this, I incised skin with a scalpel and dissected subcutaneous tissue with bipolar cautery and tenotomies. Identified the fascia and incised this in line with the skin incision and identified his ulnar nerve adjacent to the medial epicondyle and release the overlying tissue into the arcade of [place]. I used the tip of the tenotomies to palpate along the proximal course of the nerve and felt that accomplished a complete release. I then directed my attention to decompressing is cubital tunnel into the 2 heads of the FDS. After this, I palpated along the entire course of the nerve with the tenotomies to ensure that accomplished a complete release, I was confident I had. I then took his elbow through range of motion, full extension to full flexion, and noted no subluxation of the ulnar nerve. I next irrigated with sterile saline. Tourniquet was let down and bleeders were cauterized with bipolar cautery. I then closed his incision with inverted interrupted 2-0 Vicryl followed by 4-0 Monocryl in a subcuticular fashion. All counts correct 2 prior to wound closure. The ronnell-incisional skin was injected with a local anesthetic mixture. The upper extremity was cleansed and dried and a sterile soft bulky dressing was applied. Patient tolerated surgery well. No complications. The conclusion of the surgery, he was transferred gently supine to the recovery room cart and taken to PACU in a stable and neck bit condition. Postoperative plan is discharge him home. Active range of motion was encouraged. Wound care was discussed verbally and in written form. We will see him back in 2 weeks, sooner should a problem arise. ULISES EVANS II, MD Apr 13, 2018 13:04
[2018-04-13 14:25] VITALS: BP 108/61
== END | disposition home or self-care (01) ==
LOC: SURG 10:11
PROVIDERS: ATTEND Orthopaedic Surgery Sports Medicine
DX: G56.22 Lesion of ulnar nerve, left upper limb (principal); I50.20 Unspecified systolic (congestive) heart failure; E78.00 Pure hypercholesterolemia, unspecified; J44.9 Chronic obstructive pulmonary disease, unspecified; E66.9 Obesity, unspecified; M19.90 Unspecified osteoarthritis, unspecified site; E11.9 Type 2 diabetes mellitus without complications; F17.210 Nicotine dependence, cigarettes, uncomplicated; F32.9 Major depressive disorder, single episode, unspecified; Z79.899 Other long term (current) drug therapy; Z79.4 Long term (current) use of insulin; Z79.82 Long term (current) use of aspirin; Z98.42 Cataract extraction status, left eye; Z98.41 Cataract extraction status, right eye; Z95.1 Presence of aortocoronary bypass graft; Z95.5 Presence of coronary angioplasty implant and graft; Z90.49 Acquired absence of other specified parts of digestive tract; Z85.038 Personal history of other malignant neoplasm of large intestine
CPT/HCPCS: 64718; 82962; A7015; J0690; J1100; J2001; J2250; J2370; J2405; J2704; J3010; J3490

== ENCOUNTER → 2018-07-27 | Outpatient (CLI) | payer OTHER ==
[2018-04-13 14:25] VITALS: BP 108/61
[~2018-07-27] MED LIST changes: -BUPIVACAINE MPF 0.5% 30 ML VIAL. ONE; -DESFLURANE UP TO 15 MINUTES. IH ONE; -DEXAMETHASONE SOD PHOS 20 MG/5 ML VIAL. ONE; -HYDR-2758 PO; +HYDR-2761 PO; +HYDR-3164 PO; -HYDR-971 PO; -HYDROcodone/APAP 5/325MG 1 TAB TABLET PO ONE; -HYDROmorphone 2 MG/ML VIAL IV PRN; -IV RINGERS,LACTATED 1000ML 1,000 ML IV SCH; -LIDOCAINE 1% PF 2 ML VIAL. ID PRN; -LIDOCAINE 1% PF 30 ML VIAL. ONE; -LIDOCAINE 2% PF Vial for OR 5 ML VIAL. ONE; -MIDAZOLAM HCL/PF 2 MG/2 ML VIAL. ONE; -MORPHINE SULFATE 2 MG/ML VIAL. IV PRN; -ONDANSETRON PF 4 MG/2 ML VIAL. IV PRN; -ONDANSETRON PF 4 MG/2 ML VIAL. ONE; -OXYC-323 PO; +OXYC1TAB15 PO; -PHENYLEPHRINE in 0.9% NACL PF 1 MG/10 ML SYRINGE. IV ONE; -PROCHLORPERAZINE 10 MG/2 ML VIAL. IV PRN; -PROPOFOL 20 ML IV ONE; -fentaNYL PF VIAL 100 MCG/2 ML VIAL IV PRN; -fentaNYL PF VIAL 100 MCG/2 ML VIAL ONE
--- NOTE | 2018-07-27 15:01 | KCIC ---
EXAM: MRI left shoulder DATE: 07/27/2018 1:15 PM COMPARISON: None INDICATION: Left shoulder pain, weakness TECHNIQUE: Multiplanar, multisequence MRI of the left shoulder was performed without contrast. FINDINGS: Moderate AC joint degenerative changes are seen with small inferior projecting osteophytes and small left AC joint effusion. Subacromial subdeltoid bursal distention with a bursitis. Full-thickness tear of the anteriormost fibers of the supraspinatus tendon measuring approximately 1.3 cm in AP dimension. There is diffuse moderate increased signal and thickening within the distal supraspinatus and infraspinatus tendons consistent with moderate tendinosis. There is also mild increased signal within the distal subscapularis tendon consistent with moderate tendinosis. Cystic structure within the lesser tuberosity likely intrasubstance ganglion arising from the subscapularis tendinous attachment. The intra and extra-articular long head biceps tendons are normal in signal and morphology. No bicipital dislocation/subluxation. Evaluation for labral tear limited on this arthrographic study. Within these constraints no discrete labral tear is identified. Bone marrow signal is normal. Negative findings of fracture or osteonecrosis. Survey of articular cartilage within normal limits. IMPRESSION: 1. Full-thickness tear of the anteriormost fibers of the supraspinatus tendon measures 1.3 cm in AP dimension. This is in a background of moderate supraspinatus and infraspinatus tendinosis. 2. Intraosseous ganglion arising from the subscapularis tendon without obvious tear. However given the intraosseous ganglion, small articular sided tear is suspected. 3. Moderate AC joint degenerative change. Electronically signed by: Jonathon Santana MD (07/27/2018 2:56 PM) [email or web address]
== END | disposition home or self-care (01) ==
LOC: KCIC MRI 12:43
PROVIDERS: ATTEND Physician Assistant Medical
DX: M75.102 Unspecified rotator cuff tear or rupture of left shoulder, not specified as traumatic (principal); M19.012 Primary osteoarthritis, left shoulder; M25.712 Osteophyte, left shoulder
CPT/HCPCS: 73221

== ENCOUNTER → 2019-06-26 | Outpatient (CLI) | payer OTHER ==
[2018-12-13 15:00] VITALS: BP 107/63
[~2019-06-26] MED LIST changes: +CLOP75TA PO; +FURO40TA4 PO; -GABA600T2 PO; +GABA600T7 PO; +ISOS30TA4 PO; +LISI10TA2 PO; +LISI1TAB23 PO; -LISI1TAB3 PO; -PANT40TA5 PO; +PANT40TA77 PO; +RANO500T2 PO
[2019-06-26 14:36] LABS: ALBUMIN 3.5 g/dL (3.4-5.0); CALCIUM 8.4 mg/dL (8.5-10.1); CREATININE 1.1 mg/dL (0.7-1.3); GFR 67.4; TOTAL BILIRUBIN 0.7 mg/dL (0.2-1.0); TOTAL PROTEIN 7.1 g/dL (6.4-8.2)
== END | disposition home or self-care (01) ==
LOC: LAB 13:43
PROVIDERS: ATTEND Internal Medicine Cardiovascular Disease
DX: I25.10 Atherosclerotic heart disease of native coronary artery without angina pectoris (principal)
CPT/HCPCS: 36415; 80053; 80061; 83721

== ENCOUNTER 2019-09-16 01:54 | Emergency (ER) | payer OTHER ==
[~2019-09-16] VITALS: Ht 177.8 cm; Wt 98.1 kg
--- NOTE | 2019-09-16 02:08 | PHYS DOC ---
Past Medical History Past Medical History: Cancer, Diabetes-Type II, High Cholesterol, Heart Disease, Hypertension, GA, Other Additional Past Medical Histor: colon cancer Past Surgical History: Angioplasty, Coronary Bypass Surgery Additional Past Surgical Histo: angioplasty with stent placement, TURP, ileostomy placement, CABG x 2 Smoking Status: Former Smoker Alcohol Use: Occasionally Drug Use: None Adult General Chief Complaint Chief Complaint: ABDOMINAL PAIN HPI HPI 63-year-old male presents to the emergency department complaints of abdominal pa in. Patient has a history of hypertension, hyperlipidemia, history of colon cancer status post ostomy. Patient states his pain started around 1900 last evening however is progressively gotten worse. He states he is had decreased output in his ostomy, primarily liquid stool. Patient denies any fever, nausea or vomiting. He describes 10 out of 10 pain constant. Achy sensation. Nothing makes his symptoms better. Review of Systems Review of Systems Constitutional: Denies fever or chills [] Respiratory: Denies cough or shortness of breath [] Cardiovascular: No additional information not addressed in HPI [] GI: + abdominal pain, no nausea, vomiting + loose stool from ostomy : Denies dysuria or hematuria [] Musculoskeletal: Denies back pain or joint pain [] Integument: Denies rash or skin lesions [] Neurologic: Denies headache, focal weakness or sensory changes [] All other systems were reviewed and found to be within normal limits, except as documented in this note. Current Medications Current Medications Current Medications Medications (Trade) Dose Ordered Sig/Alistair Start Time Stop Time Status Last Admin Dose Admin Dicyclomine HCl (Bentyl) 10 mg 1X ONCE 09/16/19 03:15 09/16/19 03:16 DC 09/16/19 04:00 10 MG Info (CONTRAST GIVEN -- Rx MONITORING) 1 each PRN DAILY PRN 09/16/19 03:45 09/18/19 03:44 Iohexol (Omnipaque 300 Mg/ml) 75 ml 1X ONCE 09/16/19 03:45 09/16/19 03:46 DC 09/16/19 03:38 75 ML Allergies Allergies Allergies Coded Allergies Type Severity Reaction Last Updated Verified I S O L A T I O N *CONTACT* Allergy Unknown 04/07/18 Yes No Known Medication Allergies Allergy Unknown 04/07/18 Yes Physical Exam Physical Exam Constitutional: Well developed, well nourished, mild distress, non-toxic appearance. [] HENT: Normocephalic, atraumatic, bilateral external ears normal, oropharynx moist, no oral exudates, nose normal. [] Eyes: PERRLA, EOMI, conjunctiva normal, no discharge. [] Cardiovascular:Heart rate regular rhythm, no murmur [] Lungs & Thorax: Bilateral breath sounds clear to auscultation [] Abdomen: Bowel sounds normal, soft, TTP, no masses, no pulsatile masses. [] Skin: Warm, dry, no erythema, no rash. [] Back: No tenderness, no CVA tenderness. [] Extremities: No tenderness, no edema. [] Neurologic: Alert and oriented X 3, no focal deficits noted. [] Psychologic: Affect normal, judgement normal, mood normal. [] Current Patient Data Vital Signs Vital Signs Date Time Temp Pulse Resp B/P (MAP) Pulse Ox O2 Delivery O2 Flow Rate FiO2 09/16/19 01:55 97.7 86 14 157/76 (103) 95 Room Air 97.7 Lab Values Laboratory Tests Test 09/16/19 02:20 White Blood Count 8.3 x10^3/uL (4.0-11.0) Red Blood Count 5.90 x10^6/uL (4.30-5.70) H Hemoglobin 15.7 g/dL (13.0-17.5) Hematocrit 46.6 % (39.0-53.0) Mean Corpuscular Volume 79 fL (79-100) Mean Corpuscular Hemoglobin 27 pg (25-35) Mean Corpuscular Hemoglobin Concent 34 g/dL (31-37) Red Cell Distribution Width 20.7 % (11.5-14.5) H Platelet Count 153 x10^3/uL (140-400) Neutrophils (%) (Auto) 80 % (31-73) H Lymphocytes (%) (Auto) 8 % (24-48) L Monocytes (%) (Auto) 9 % (0-9) Eosinophils (%) (Auto) 2 % (0-3) Basophils (%) (Auto) 1 % (0-3) Neutrophils # (Auto) 6.6 x10^3/uL (1.8-7.7) Lymphocytes # (Auto) 0.7 x10^3/uL (1.0-4.8) L Monocytes # (Auto) 0.7 x10^3/uL (0.0-1.1) Eosinophils # (Auto) 0.1 x10^3/uL (0.0-0.7) Basophils # (Auto) 0.1 x10^3/uL (0.0-0.2) Platelet Estimate Pending Sodium Level 140 mmol/L (136-145) Potassium Level 4.6 mmol/L (3.5-5.1) Chloride Level 102 mmol/L (98-107) Carbon Dioxide Level 23 mmol/L (21-32) Anion Gap 15 (6-14) H Blood Urea Nitrogen 12 mg/dL (8-26) Creatinine 1.1 mg/dL (0.7-1.3) Estimated GFR (Cockcroft-Gault) 67.4 BUN/Creatinine Ratio 11 (6-20) Glucose Level 244 mg/dL (70-99) H Calcium Level 9.4 mg/dL (8.5-10.1) Total Bilirubin 0.8 mg/dL (0.2-1.0) Aspartate Amino Transferase (AST) 25 U/L (15-37) Alanine Aminotransferase (ALT) 49 U/L (16-63) Alkaline Phosphatase 61 U/L (46-116) Total Protein 7.1 g/dL (6.4-8.2) Albumin 3.9 g/dL (3.4-5.0) Albumin/Globulin Ratio 1.2 (1.0-1.7) Lipase 183 U/L (73-393) Laboratory Tests 09/16/19 02:20 Laboratory Tests 09/16/19 02:20 EKG EKG [] Radiology/Procedures Radiology/Procedures [facility] [address] [place], [place] [id number] IMAGING REPORT Signed PATIENT: YANA TORRES ACCOUNT: [id number] : 1955 LOCATION: ER AGE: 63 SEX: M EXAM STATUS: REG ER ORD. PHYSICIAN: DELFINA SAN MD REASON: abdominal pain, negative KUB - pain out of proportion to exam PROCEDURE: CT ABD PELV W/ IV CONTRST ONLY CT abdomen and pelvis with contrast: Reason for examination: Abdominal pain. Comparison is made to previous study dated 08/15/2016. Helical images were obtained through the abdomen and pelvis with intravenous administration of 75 cc Omnipaque 300. Reconstruction was performed in sagittal and coronal planes. Exposure: One or more of the following individualized dose reduction techniques were utilized for this examination: 1. Automated exposure control 2. Adjustment of the mA and/or kV according to patient size 3. Use of iterative reconstruction technique. There is a calcified granuloma at the posterior right lung base. There also continues to be small 4 mm nodule at the pleural surface of the left lung base laterally which is unchanged. The heart size is normal with no pericardial effusion. No abnormality seen at the liver, spleen, adrenal glands or pancreas. There is cholelithiasis present. The abdominal aorta and inferior vena cava show no acute abnormalities. The colon has been resected. Ostomy site is seen in the right anterior abdominal wall. The small intestinal tract shows some dilatation of the distal small intestine measuring up to 3.5 cm diameter. Proximal small intestine is not distended. The kidneys show small hypodense lesions bilaterally consistent with cysts with the largest at the lower pole left kidney measuring 3.4 cm in greatest dimension. No renal calculi, hydronephrosis or obstructive uropathy is seen. No abnormality seen at the bladder. Prostate gland contains calcifications. Seminal vesicles are symmetric. There are degenerative changes at the L5-S1 disc. No acute bony abnormalities are seen. IMPRESSION: Dilated small intestine distally to the ostomy measuring up to 3.5 cm diameter. Similar appearance however was seen previously. Cholelithiasis. Electronically signed by: Larry Rodríguez MD (09/16/2019 4:06 AM) [id number] DICTATED and SIGNED BY: LARRY RODRÍGUEZ MD DATE: 09/16/19 0406 [] Course & Med Decision Making Course & Med Decision Making Pertinent Labs and Imaging studies reviewed. (See chart for details) [] 63-year-old male presents to the emergency department complaints of abdominal pain. Patient has a history of hypertension, hyperlipidemia, history of colon cancer status post ostomy. Patient states his pain started around 1900 last evening however is progressively gotten worse. He states he is had decreased output in his ostomy, primarily liquid stool. Patient denies any fever, nausea or vomiting. He describes 10 out of 10 pain constant. Achy sensation. Nothing makes his symptoms better. Labs, imaging reviewed No evidence of acute obstructive process Patient improved after Bentyl Recommend discharge home follow-up as an outpatient primary care physician Discussed return precautions. Geno Disclaimer Geno Disclaimer This electronic medical record was generated, in whole or in part, using a voice recognition dictation system. Departure Departure Impression: Primary Impression: Abdominal pain Disposition: HOME, SELF-CARE Condition: IMPROVED Referrals: SACHA DIGGS MD (PCP) Patient Instructions: Abdominal Pain (Nonspecific) Additional Instructions: Labs/Imaging reviewed No obstructive process appreciated Pain improved after bentyl Rx provided for bentyl Scripts Dicyclomine Hcl (DICYCLOMINE HCL) 10 Mg Capsule 1 CAP PO PRN Q6HRS PRN for PAIN, #10 CAP 3 Refills Prov: DELFINA SAN MD 09/16/19 Problem Qualifiers Primary Impression: Abdominal pain Abdominal location: generalized Qualified Codes: R10.84 - Generalized abdominal pain DELFINA SAN MD Sep 16, 2019 02:08
[2019-09-16 02:27] LABS: BASO # 0.1 x10^3/uL (0.0-0.2); BASO % 1 % (0-3); EOS # 0.1 x10^3/uL (0.0-0.7); EOS % 2 % (0-3); HEMATOCRIT 46.6 % (39.0-53.0); HEMOGLOBIN 15.7 g/dL (13.0-17.5); LYMPH # 0.7 x10^3/uL (1.0-4.8); LYMPH % 8 % (24-48); MEAN CORPUSCULAR HEMOGLOBIN 27 pg (25-35); MEAN CORPUSCULAR HGB CONC 34 g/dL (31-37); MEAN CORPUSCULAR VOLUME 79 fL (79-100); MONO # 0.7 x10^3/uL (0.0-1.1); MONO % 9 % (0-9); NEUT # 6.6 x10^3/uL (1.8-7.7); NEUT % 80 % (31-73); PLATELET COUNT 153 x10^3/uL (140-400); RED CELL DISTRIBUTION WIDTH 20.7 % (11.5-14.5); WHITE BLOOD COUNT 8.3 x10^3/uL (4.0-11.0)
[2019-09-16 02:42] LABS: CALCIUM 9.4 mg/dL (8.5-10.1); CREATININE 1.1 mg/dL (0.7-1.3); GFR 67.4; POTASSIUM 4.6 mmol/L (3.5-5.1)
--- NOTE | 2019-09-16 02:48 | RAD ---
Abdomen AP supine: Reason for examination: Abdominal cramping. There is no gross organomegaly. Psoas muscles are symmetric. Ostomy site appears to be present on the right. The intestinal tract shows a nonspecific gas pattern with no apparent obstruction. Calcifications consistent with phleboliths are seen in the pelvis. No acute bony abnormality seen. IMPRESSION: Nonspecific gas pattern in the abdomen. No definite obstruction evident. Electronically signed by: Emerita Hawkins MD (09/16/2019 2:45 AM) [id number]
[2019-09-16 02:57] LABS: ALBUMIN 3.9 g/dL (3.4-5.0); ALBUMIN/GLOBULIN RATIO 1.2 (1.0-1.7); TOTAL BILIRUBIN 0.8 mg/dL (0.2-1.0); TOTAL PROTEIN 7.1 g/dL (6.4-8.2)
[2019-09-16] MEDS ORDERED: DICYCLOMINE 20 MG/2 ML VIAL. IM ONE (03:15)
[2019-09-16] MEDS ORDERED: IOHEXOL 300 MG/ML 100ML VIAL. IV ONE (03:45)
[2019-09-16] MEDS ORDERED: CONTRAST GIVEN. MC PRN (03:45)
--- NOTE | 2019-09-16 04:09 | RAD ---
CT abdomen and pelvis with contrast: Reason for examination: Abdominal pain. Comparison is made to previous study dated 08/15/2016. Helical images were obtained through the abdomen and pelvis with intravenous administration of 75 cc Omnipaque 300. Reconstruction was performed in sagittal and coronal planes. Exposure: One or more of the following individualized dose reduction techniques were utilized for this examination: 1. Automated exposure control 2. Adjustment of the mA and/or kV according to patient size 3. Use of iterative reconstruction technique. There is a calcified granuloma at the posterior right lung base. There also continues to be small 4 mm nodule at the pleural surface of the left lung base laterally which is unchanged. The heart size is normal with no pericardial effusion. No abnormality seen at the liver, spleen, adrenal glands or pancreas. There is cholelithiasis present. The abdominal aorta and inferior vena cava show no acute abnormalities. The colon has been resected. Ostomy site is seen in the right anterior abdominal wall. The small intestinal tract shows some dilatation of the distal small intestine measuring up to 3.5 cm diameter. Proximal small intestine is not distended. The kidneys show small hypodense lesions bilaterally consistent with cysts with the largest at the lower pole left kidney measuring 3.4 cm in greatest dimension. No renal calculi, hydronephrosis or obstructive uropathy is seen. No abnormality seen at the bladder. Prostate gland contains calcifications. Seminal vesicles are symmetric. There are degenerative changes at the L5-S1 disc. No acute bony abnormalities are seen. IMPRESSION: Dilated small intestine distally to the ostomy measuring up to 3.5 cm diameter. Similar appearance however was seen previously. Cholelithiasis. Electronically signed by: Emerita Hawkins MD (09/16/2019 4:06 AM) [facility]
[2019-09-16] MEDS ORDERED: DICY10CA3 PO (04:23)
[2019-09-16 04:31] VITALS: BP 123/58
[2019-09-16 04:39] LABS: ANISOCYTOSIS MOD; PLT ESTIMATE ADEQUATE (ADEQUATE); POLYCHROMASIA SLIGHT
[2019-09-16 04:40] LABS: OVALOCYTES FEW
== END 2019-09-16 04:47 | disposition home or self-care (01) ==
LOC: ER 01:54
DX: R10.84 Generalized abdominal pain (principal); R19.7 Diarrhea, unspecified; E78.00 Pure hypercholesterolemia, unspecified; I25.2 Old myocardial infarction; I11.9 Hypertensive heart disease without heart failure; E11.9 Type 2 diabetes mellitus without complications; Z87.891 Personal history of nicotine dependence; Z95.1 Presence of aortocoronary bypass graft; Z95.5 Presence of coronary angioplasty implant and graft; Z93.2 Ileostomy status; Z91.041 Radiographic dye allergy status
CPT/HCPCS: 36415; 74018; 74177; 80053; 83690; 85025; 96372; 99285; J0500; Q9967

== ENCOUNTER → 2019-10-31 | Outpatient (CLI) | payer MEDICARE ==
[~2019-10-31] MED LIST changes: +ASPI-630 PO; +DICY10CA3 PO; +FERR325T14 PO; +HEPARIN for NUC MED 500 UNIT/5 ML DISP.SYRIN. IV ONE; +ONDA8TAB9 PO; +OXYC-325 PO
--- NOTE | 2019-11-01 08:37 | RAD ---
MR#: [id number] Date of Study: 10/31/2019 Ordering Physician: KELLI HERNANDEZ, Referring Physician: KELLI HERNANDEZ, Tech: WILLIAN Waters, RDMS, Rvt APPROVED REPORT Patient Location: OUT-PATIENT Laterality:Bilateral Indications pvd Doppler Spectral Velocity Analysis Right Left pCCA 74/8 cm/spCCA 99/12 cm/s mCCA 76/8 cm/smCCA 97/19 cm/s dCCA 68/14 cm/sdCCA 73/16 cm/s ECA 95/ cm/sECA 138/ cm/s pICA 56/9 cm/spICA 88/26 cm/s Nghia 60/13 cm/smICA 66/18 cm/s dICA 54/12 cm/sdICA 107/26 cm/s Vert. 39/ cm/sVert. 36/ cm/s ICA/CCA 0.79ICA/CCA 1.08 Findings Grayscale images of the bilateral carotid vessels demonstrates mild diffuse intimal hyperplasia. Bas ed on velocity criteria in the internal carotid vessels there is 0 to less than 50% stenosis. The le ft external carotid artery has moderate disease. Bilateral vertebral velocities are antegrade. No s ignificant obstructive disease is noted otherwise. Critical Notification Critical Value: No <Conclusion> 1. No significant carotid occlusive disease. Signed by : Kelli Hernandez, Electronically Approved : 11/01/2019 08:37:09
--- NOTE | 2019-11-02 09:40 | RAD ---
MR#: [id number] Date of Study: 10/31/2019 Ordering Physician: KELLI HERNANDEZ, Referring Physician: MIRELLA MCLEAN Tech: APPROVED REPORT Rest: Stress: Viability: Radiopharm.TC99M RBC'S Dose22.0mCi Img Date 10/31/2019 Rest Admin Site:IV - Left AntecubitalAdministrator:RT Sidney (R)(N) LV Perfusion This is a gated resting MUGA scan. Patient was administered 22 mCi as noted above. The ejection fra ction is calculated at 56% with normal wall motion noted on CHILEAN images. Right Ventricle 1. Normal right ventricular function noted Conclusion 1. 1. Normal ejection fraction at 56%. Signed by : Kelli Hernandez, Electronically Approved : 11/02/2019 09:40:09
== END | disposition home or self-care (01) ==
LOC: NM 12:12
PROVIDERS: ATTEND Internal Medicine Cardiovascular Disease
DX: Z01.810 Encounter for preprocedural cardiovascular examination (principal); I25.10 Atherosclerotic heart disease of native coronary artery without angina pectoris; I73.9 Peripheral vascular disease, unspecified; M75.122 Complete rotator cuff tear or rupture of left shoulder, not specified as traumatic
CPT/HCPCS: 78472; 93880; A9560

== ENCOUNTER → 2019-11-24 | Outpatient (CLI) | payer MEDICARE ==
[~2019-11-24] MED LIST changes: -HEPARIN for NUC MED 500 UNIT/5 ML DISP.SYRIN. IV ONE
== END | disposition home or self-care (01) ==
LOC: SURGPAT 08:04
PROVIDERS: ATTEND Orthopaedic Surgery Sports Medicine
DX: Z01.818 Encounter for other preprocedural examination (principal); M75.102 Unspecified rotator cuff tear or rupture of left shoulder, not specified as traumatic; Z79.899 Other long term (current) drug therapy
CPT/HCPCS: 36415; 82306; U0003-CS

== ENCOUNTER 2019-11-29 06:46 | Day surgery (SDC) | payer MEDICARE ==
[~2019-11-29] VITALS: Ht 177.8 cm; Wt 98.9 kg
[~2019-11-29 06:46] MED LIST changes: -ONDA8TAB9 PO; -OXYC-325 PO
[2019-11-29] MEDS ORDERED: IV RINGERS,LACTATED 1000ML 1,000 ML IV SCH (07:00)
[2019-11-29] MEDS ORDERED: MORPHINE SULFATE 2 MG/ML VIAL. IV PRN (07:00)
[2019-11-29] MEDS ORDERED: ONDANSETRON PF 4 MG/2 ML VIAL. IV PRN (07:00)
[2019-11-29] MEDS ORDERED: fentaNYL PF VIAL 100 MCG/2 ML VIAL IV PRN ×2 (07:00)
[2019-11-29] MEDS ORDERED: HYDROmorphone 2 MG/ML VIAL IV PRN (07:00)
[2019-11-29] MEDS ORDERED: LIDOCAINE 1% PF 2 ML VIAL. ID PRN (07:00)
[2019-11-29] MEDS ORDERED: PROCHLORPERAZINE 10 MG/2 ML VIAL. IV PRN (07:00)
[2019-11-29] MEDS ORDERED: MIDAZOLAM HCL/PF 2 MG/2 ML VIAL. ONE (07:44)
[2019-11-29] MEDS ORDERED: DEXAMETHASONE SOD PHOS 20 MG/5 ML VIAL. ONE (07:45)
[2019-11-29] MEDS ORDERED: EPINEPHrine 1 MG/ML VIAL ONE (07:45)
[2019-11-29] MEDS ORDERED: BUPIVACAINE MPF 0.5% 30 ML VIAL. ONE (07:45)
[2019-11-29] MEDS: INSULIN LISPRO 100 UNIT/ML 3ML VIAL for OP,RR ONLY. SQ PRN ×2 (07:50→10:44)
[2019-11-29 08:08] LABS: HEMATOCRIT 40.9 % (39.0-53.0); HEMOGLOBIN 13.8 g/dL (13.0-17.5)
--- NOTE | 2019-11-29 08:16 | DISCH ---
DISCHARGE INSTRUCTIONS Condition on Discharge Condition on Discharge: Stable Activity After Discharge Activity Instructions for Disc: Other, see below Other activity instructions: arm to remain in sling Bathing Instructions: Shower-keep dressing dry Lifting Instructions after Dis: Add. restrict see below Exercise Instruction after Dis: Progress as tolerated Driving Instructions after Dis: Other, see below Weight Bearing Status after Di: Non weight bearing, Other, see below Diet after Discharge Diet after Discharge: Cardiac, No Added Salt, No Added Sugar, Regular, Diabetic No Calorie Level Diet Texture: Regular Liquid Texture: Thin Liquid Wound Incision Care Wound/Incision Care: Ice to area for comfort, Keep wound/cast CDI, Keep wound elevated, Change dressing Checks after Discharge Checks after discharge: Check blood press - daily, Check blood sugar, ac/hs, Check your Temp as needed, Weigh Yourself Daily Contacting the DR. after DC Call your doctor for: Concerns you may have Follow-Up Follow up with: Venkata in 2 wksw Treatment/Equipment after DC Adaptive Equipment Issued: None VICENTA EVANS II, MD Nov 29, 2019 08:16
[2019-11-29] MEDS ORDERED: ONDANSETRON PF 4 MG/2 ML VIAL. ONE (08:18)
[2019-11-29] MEDS ORDERED: LIDOCAINE 2% PF 5 ML VIAL. ONE (08:18)
[2019-11-29] MEDS ORDERED: PROPOFOL 10 MG/ML (20ML) VIAL. IV ONE (08:18)
[2019-11-29] MEDS ORDERED: DEXAMETHASONE SOD PHOS 4 MG/ML VIAL ONE (08:18)
[2019-11-29] MEDS ORDERED: ROCURONIUM 50 MG/5 ML VIAL. ONE (08:18)
[2019-11-29] MEDS ORDERED: fentaNYL PF VIAL 100 MCG/2 ML VIAL ONE (08:19)
[2019-11-29] MEDS ORDERED: EPINEPHrine VIAL 30 MG/30 ML VIAL ONE (08:21)
[2019-11-29] MEDS ORDERED: PHENYLEPHRINE 10 MG/ML VIAL. ONE (08:23)
[2019-11-29] MEDS ORDERED: ePHEDrine PF IN SALINE 50 MG/10 ML SYRINGE. IV ONE (09:20)
[2019-11-29] MEDS ORDERED: NEOSTIGMINE METHYLSULFATE 5 MG/5 ML SYRINGE. ONE (09:34)
[2019-11-29] MEDS ORDERED: GLYCOPYRROLATE 1 MG/5 ML VIAL. ONE (09:34)
--- NOTE | 2019-11-29 09:46 | PDOC4 ---
Operative Note Operative Note Date of procedure: 11/29/2019 Surgeon: Ulises Evans Patient Care Coordinator: Jaswinder Everett Preoperative diagnosis: Left shoulder rotator cuff tear Postoperative diagnosis: Same Procedure performed: Left shoulder arthroscopy with rotator cuff repair Anesthesia: General plus regional nerve block Complications: None Blood loss: 5 mL Findings: He had some softening at his glenoid cartilage, otherwise glenohumeral cartilage was unremarkable Fraying superiorly and posterior superiorly at labrum, labrum was intact circumferentially Biceps tendon had a hyperemic appearance in the groove, but no splits. No loose bodies Small full-thickness tear at leading edge of supraspinatus, about 1 cm in length Remainder of rotator cuff intact Components inserted [employer] Helacoil suture anchor x1 Reason for procedure: Patient is a very pleasant 64-year-old gentleman who has had a rotator cuff tear and shoulder pain and dysfunction for quite some time. Please see my outpatient notes for full details. I seen him initially over a year ago, we had to delay surgery for cardiac issues, he recently received cardiology clearance and wished to proceed with rotator cuff repair. We discussed the risks, benefits, and alternatives and he elected to proceed. Description of procedure: Patient was greeted in the preoperative area by myself or the correct extremity was verified and marked. He was taken to the operative suite after he had placement of the regional nerve block by the anesthesiology team. His antibiotics were started as he was brought back. Once in the operating room, he was transferred gently supine to the operating table and secured bed with all pressure points padded and had successful induction of a general anesthetic. After this, we set him up in a beachchair position maintaining his C-spine in a neutral position. We then proceeded to prep and drape left upper extremity and shoulder girdle in her usual sterile fashion including Ioban at the periphery. I then palpated marked surface anatomy, used a spinal needle to localize a posterior superior portal and incised skin in accordance with this. I introduced upon arthroscopic trocar into the glenohumeral joint followed by the camera. I then used a spinal to localize an anterosuperior portal and incised skin, and dilated the hole. I then placed my arthroscopic probe into the glenohumeral joint conducted my diagnostic arthroscopy with above-noted findings. After this, I used the shaver to debride the labrum. I then used a spinal needle to shuttle a PDS suture through the area of rotator cuff tear that I was able to visualize from the intra-articular vantage point. After this, I withdrew my arthroscopic instrumentation from the glenohumeral joint and repositioned in the subacromial space. I performed a bursectomy with combination of electrocautery device and shaver. After this, I debrided the rotator cuff tear, it was about a centimeter. I prepared by footprint, taking care not to decorticate. I then placed a trocar through a lateral portal I had created. I then used my all and placed my suture anchor. I then trialed the suture limbs through in a simple configuration with my first pass suture passing device. In order to better manage the sutures, I did create an accessory anterolateral portal. I then tied the sutures down using arthroscopic knot tying techniques. The tear was stable to probing and gentle rotation of the arm. I removed all excess arthroscopic fluid and arthroscopic instrumentation from subacromial space. We then closed the portals with simple interrupted 3-0 nylon. The shoulder was cleansed and dried and is soft bulky dressing was applied. The patient's left upper extremity is in place to an abduction pillow sling. He was laid supine, awakened from anesthesia and transferred gently supine to the recovery room cart and taken to PACU in stable and extubated condition. Postoperative plan is to discharge the patient home. Nonweightbearing. I will see him back in my clinic in 2 weeks, sooner should a problem arise. We will get him started on physical therapy. ULISES EVANS II, MD Nov 29, 2019 09:46
[2019-11-29] MEDS ORDERED: SEVOFLURANE 61 TO 120 MINUTES. IH ONE (09:52)
[2019-11-29] MEDS ORDERED: ONDA8TAB9 PO (10:24)
[2019-11-29] MEDS ORDERED: OXYC-325 PO (10:26)
[2019-11-29] MEDS ORDERED: DOCU-109 PO ×2 (10:27→10:28)
[2019-11-29] MEDS ORDERED: oxyCODONE/APAP 5/325 1 TAB TABLET ONE (10:46)
[2019-11-29] MEDS ORDERED: oxyCODONE/APAP 5/325 1 TAB TABLET PO ONE (11:00)
[2019-11-29 11:25] VITALS: BP 110/61
== END 2019-11-29 12:05 | disposition home or self-care (01) ==
LOC: SURG 06:46
PROVIDERS: ATTEND Orthopaedic Surgery Sports Medicine
DX: M75.112 Incomplete rotator cuff tear or rupture of left shoulder, not specified as traumatic (principal); E78.00 Pure hypercholesterolemia, unspecified; I25.2 Old myocardial infarction; I25.10 Atherosclerotic heart disease of native coronary artery without angina pectoris; I11.0 Hypertensive heart disease with heart failure; I50.9 Heart failure, unspecified; J44.9 Chronic obstructive pulmonary disease, unspecified; E11.9 Type 2 diabetes mellitus without complications; E66.9 Obesity, unspecified; Z68.31 Body mass index [BMI] 31.0-31.9, adult; Z79.899 Other long term (current) drug therapy; Z95.1 Presence of aortocoronary bypass graft; Z87.891 Personal history of nicotine dependence; Z90.49 Acquired absence of other specified parts of digestive tract; Z93.3 Colostomy status; Z79.84 Long term (current) use of oral hypoglycemic drugs; Z98.42 Cataract extraction status, left eye; Z98.41 Cataract extraction status, right eye; Z98.890 Other specified postprocedural states; Z96.1 Presence of intraocular lens
CPT/HCPCS: 29827; 36415; 64415; 82962; 85014; 85018; A7015; C1713; J0171; J1100; J2250; J2370; J2405; J2704; J2710; J3010; J3490

== ENCOUNTER 2020-02-10 19:50 | Emergency (ER) | payer MEDICARE ==
[~2020-02-10] VITALS: Ht 177.8 cm; Wt 93.0 kg
[~2020-02-10 19:50] MED LIST changes: +ONDA8TAB9 PO; +OXYC-325 PO
--- NOTE | 2020-02-10 20:12 | PHYS DOC ---
Past Medical History Past Medical History: Arthritis, CAD, Cancer, CHF, COPD, Depression, Hype rtension, SC, UTI Additional Past Medical Histor: colon cancer Past Surgical History: Appendectomy, Cancer Surgery, Cholecystectomy Additional Past Surgical Histo: CABG, COLOSTOMY Smoking Status: Former Smoker Alcohol Use: Rarely Drug Use: None General Adult EDM: Chief Complaint: ABDOMINAL PAIN HPI: HPI: Patient is a 64 year old male who presents with complaints of left lower quadrant abdominal pain. Patient reports that he woke up this morning with discomfort in his left lower quadrant. He also noted a decrease in appetite and over the course of the day noted that his abdomen started to bloat, as well as a decrease in output from his ileostomy bag. Patient is had a total colectomy secondary to colon cancer. He does complain of nausea without vomiting, denies any diarrhea, fever, chills or sweats. He describes the pain as a cramping that is nonradiating. It became constant about 3 hours ago. Patient denied chest pain, shortness of breath, cough, sore throat, change in smell or taste. Patient reports he does have a history of small bowel obstruction. Review of Systems: Review of Systems: Constitutional: Denies fever or chills. [] Eyes: Denies change in visual acuity. [] HENT: Denies nasal congestion or sore throat. [] Respiratory: Denies cough or shortness of breath. [] Cardiovascular: Denies chest pain or edema. [] GI: See HPI. [] : Denies dysuria. [] Musculoskeletal: Denies back pain or joint pain. [] Integument: Denies rash. [] Neurologic: Denies headache, focal weakness or sensory changes. [] Endocrine: Denies polyuria or polydipsia. [] Lymphatic: Denies swollen glands. [] Psychiatric: Denies depression or anxiety. [] Heart Score: Risk Factors: Risk Factors: DM, Current or recent (<one month) smoker, HTN, HLP, family history of CAD, obesity. Risk Scores: Score 0 - 3: 2.5% MACE over next 6 weeks - Discharge Home Score 4 - 6: 20.3% MACE over next 6 weeks - Admit for Clinical Observation Score 7 - 10: 72.7% MACE over next 6 weeks - Early Invasive Strategies Allergies: Allergies: Allergies Coded Allergies Type Severity Reaction Last Updated Verified No Known Medication Allergies Allergy Unknown Unknown 11/29/19 Yes Physical Exam: PE: Constitutional: Well developed, well nourished, no acute distress, non-toxic appearance. [] HENT: Normocephalic, atraumatic, bilateral external ears normal, oropharynx moist, no oral exudates, nose normal. [] Eyes: PERRLA, EOMI, conjunctiva normal, no discharge. [] Neck: Normal range of motion, no tenderness, supple, no stridor. No JVD [] Cardiovascular:Heart rate regular rhythm, grade 2/6 systolic murmur, no shift of PMI, 1 out of 2 dorsalis pedis bilaterally, [] Lungs & Thorax: Bilateral breath sounds clear to auscultation [] Abdomen: High-pitched bowel sounds left lower quadrant, tenderness diffusely but mostly in the left lower quadrant without guarding or rebound, mild distention, soft, no hepatosplenomegaly, negative Lynne sign. [] Skin: Warm, dry, no erythema, no rash. [] Back: No tenderness, no CVA tenderness. [] Extremities: No tenderness, no cyanosis, no clubbing, ROM intact, trace edema bilaterally [] Neurologic: Alert and oriented X 3, normal motor function, normal sensory function, no focal deficits noted. [] Psychologic: Affect normal, judgement normal, mood normal. [] EKG: EKG: Heart rate 69 bpm, normal sinus rhythm, left bundle branch block, left axis deviation, abnormal ECG [] Radiology/Procedures: Radiology/Procedures: [] Course & Med Decision Making: Course & Med Decision Making Pertinent Labs and Imaging studies reviewed. (See chart for details) [] Dragon Disclaimer: Dragon Disclaimer: This electronic medical record was generated, in whole or in part, using a voice recognition dictation system. Departure Departure Impression: Primary Impression: Acute gastritis without hemorrhage Qualified Codes: K29.00 - Acute gastritis without bleeding Additional Impression: Epigastric abdominal pain Disposition: HOME, SELF-CARE Condition: IMPROVED Referrals: SACHA DIGGS MD (PCP) Patient Instructions: Gastritis, Adult, Gastroparesis Additional Instructions: Please follow-up with your tracer powder blender and consider a work-up for diabetic gastroparesis Justicifation of Admission Dx: Justifications for Admission: Justification of Admission Dx: N/A ROBERT RAMSEY MD Feb 10, 2020:12
[2020-02-10] MEDS ORDERED: IV NORMAL SALINE 500ML BAG 500 ML IV ONE (20:15)
[2020-02-10] MEDS ORDERED: HYDROmorphone 2 MG/ML VIAL IV ONE (20:15)
[2020-02-10 20:23] LABS: BASO # 0.1 x10^3/uL (0.0-0.2); BASO % 1 % (0-3); EOS # 0.2 x10^3/uL (0.0-0.7); EOS % 2 % (0-3); HEMATOCRIT 43.7 % (39.0-53.0); LYMPH # 0.9 x10^3/uL (1.0-4.8); LYMPH % 13 % (24-48); MEAN CORPUSCULAR HEMOGLOBIN 28 pg (25-35); MEAN CORPUSCULAR HGB CONC 34 g/dL (31-37); MEAN CORPUSCULAR VOLUME 82 fL (79-100); MONO # 0.7 x10^3/uL (0.0-1.1); MONO % 10 % (0-9); NEUT # 5.1 x10^3/uL (1.8-7.7); NEUT % 74 % (31-73); PLATELET COUNT 154 x10^3/uL (140-400); RED BLOOD COUNT 5.31 x10^6/uL (4.30-5.70); RED CELL DISTRIBUTION WIDTH 15.9 % (11.5-14.5); WHITE BLOOD COUNT 6.8 x10^3/uL (4.0-11.0)
[2020-02-10 20:32] LABS: PROTHROMBIN TIME PATIENT 12.8 SEC (11.7-14.0)
[2020-02-10 20:34] LABS: CALCIUM 9.4 mg/dL (8.5-10.1); CREATININE 1.2 mg/dL (0.7-1.3); GFR 60.8; POTASSIUM 4.5 mmol/L (3.5-5.1)
[2020-02-10 20:40] LABS: ALBUMIN/GLOBULIN RATIO 1.3 (1.0-1.7); TOTAL BILIRUBIN 0.6 mg/dL (0.2-1.0); TOTAL PROTEIN 7.1 g/dL (6.4-8.2)
--- NOTE | 2020-02-10 21:13 | RAD ---
Chest PA and lateral: Reason for examination: Generalized abdominal pain. Postop changes are seen in the sternum and mediastinum. The heart size is normal. Mediastinum is unremarkable. Lung cesar are clear except for a calcified granuloma in the right lung field. No acute bony abnormalities are seen. Impression: No acute cardiopulmonary disease. Electronically signed by: Emerita Hawkins MD (02/10/2020 9:10 PM) RAD[facility]KA
[2020-02-10 22:53] LABS: BILIRUBIN,URINE NEGATIVE (NEG); CLARITY,URINE CLEAR; COLOR,URINE YELLOW; NITRITE,URINE NEGATIVE (NEG); PH,URINE 5.5 (<5.0-8.0); PROTEIN,URINE NEGATIVE (NEG-TRACE); UROBILINOGEN,URINE 0.2 mg/dL (0.2 mg/dL)
[2020-02-10 23:15] LABS: BACTERIA,URINE 0 /HPF (0-FEW); HYALINE CASTS, URINE FEW /HPF; RBC,URINE 0 /HPF (0-2); SQUAMOUS EPITHELIAL CELL,UR OCC /LPF
--- NOTE | 2020-02-10 23:29 | RAD ---
CT ABDOMEN PELVIS WO CONTRAST INDICATION: GEN ABD (PAIN SUSPECT sbo) EXAM: Noncontrast CT of the abdomen and pelvis. Coronal and sagittal reformatted images were performed. PQRS compliance statement: One or more of the following individualized dose reduction techniques were utilized for this examination: 1. Automated exposure control 2. Adjustment of the mA and/or kV according to patient size 3. Use of iterative reconstruction technique COMPARISON: 09/16/2019 FINDINGS: No free air, free fluid, or fluid collection. Lower chest: The visualized lower lungs are aerated. No pleural or pericardial effusion. Coronary artery atherosclerotic disease. ABDOMEN: Liver: The noncontrast liver is homogeneous in attenuation. Gallbladder and biliary: Cholelithiasis. Normal caliber bile ducts. Spleen: Normal spleen. Pancreas: The noncontrast pancreas is homogeneous in attenuation without peripancreatic inflammatory changes. Adrenal glands: Normal adrenal glands. Kidneys and ureters: No opaque urinary calculi. No hydronephrosis. GI tract: Normal stomach. Postsurgical changes of total colectomy with right lower quadrant ostomy. Small bowel is diffusely dilated up to the ostomy site, measuring up to 3.4 cm in diameter similar to prior exams. Vascular structures: Moderate aortoiliac atherosclerotic disease Lymph nodes: No lymphadenopathy in the abdomen or pelvis. PELVIS: Genitourinary system: Normal bladder. SKELETAL STRUCTURES AND SOFT TISSUES: Degenerative changes of the spine IMPRESSION: Diffuse mild dilatation of small bowel extending up to the ostomy site, similar to prior exams. Electronically signed by: Cesar Alexander MD (02/10/2020 11:26 PM) [facility]
[2020-02-11] MEDS ORDERED: KETOROLAC 30 MG/ML VIAL. IVP ONE (00:15)
[2020-02-11] MEDS ORDERED: METOCLOPRAMIDE HCL 10 MG/2 ML VIAL. IVP ONE (01:30)
[2020-02-11] MEDS ORDERED: MAG HYDROX/ALUMINUM HYD/SIMETH 30 ML ORAL.SUSP PO ONE (01:30)
[2020-02-11] MEDS ORDERED: FAMOTIDINE 20 MG TABLET. PO ONE (01:30)
[2020-02-11 02:56] VITALS: BP 109/66
--- NOTE | 2020-02-11 12:27 | EKG ---
[facility] [address] [place] [address] Test Date: 2020-02-10 Test Time: 20:25:36 Pat Name: YANA TORRES Department: Room: Gender: M [employer]: [id number] : 1955 Requested By: ROBERT RAMSEY Order Number: [id number] Reading MD: Measurements Intervals Transfer Rate: 66 P: 67 MN: 188 QRS: -46 QRSD: 116 T: 94 QT: 392 QTc: 413 Interpretive Statements SINUS RHYTHM ABNORMAL LEFT AXIS DEVIATION LEFT ANTERIOR FASCICULAR BLOCK ST & T ABNORMALITY, CONSIDER HIGH LATERAL ISCHEMIA OR LEFT VENTRICULAR STRAIN ABNORMAL ECG RI6.01 No previous ECG available for comparison
== END 2020-02-11 03:01 | disposition home or self-care (01) ==
LOC: ER 19:50
DX: K29.00 Acute gastritis without bleeding (principal); R10.13 Epigastric pain; M19.90 Unspecified osteoarthritis, unspecified site; Z20.818 Contact with and (suspected) exposure to other bacterial communicable diseases; I11.9 Hypertensive heart disease without heart failure; I50.9 Heart failure, unspecified; F32.9 Major depressive disorder, single episode, unspecified; J44.9 Chronic obstructive pulmonary disease, unspecified; I25.2 Old myocardial infarction; Z90.49 Acquired absence of other specified parts of digestive tract; Z90.89 Acquired absence of other organs; Z87.891 Personal history of nicotine dependence
CPT/HCPCS: 36415; 71046; 74176; 80053; 81001; 83605; 83690; 84484; 85025; 85610; 85730; 87426; 93005; 96361; 96374; 96375; 99285; J1170; J1885; J2765; J7040; U0003

== ENCOUNTER → 2020-02-19 | Outpatient (CLI) | payer MEDICARE ==
[2020-02-11 02:56] VITALS: BP 109/66
--- NOTE | 2020-02-19 14:20 | KCIC ---
Examination: Small Bowel Series: History: Abdominal pain, nausea, history of colon cancer COMPARISON: None available FINDINGS: The preliminary film is unremarkable. Following administration of oral barium, images were performed at timed intervals. The transit time it is approximately 90 minutes. The duodenal loop appears normal. Mild distention of small bowel loops identified in the abdomen. Right lower quadrant ostomy is identified. IMPRESSION: 1. Mild distended bowel loops identified throughout the abdomen similar to recent CT scan could be ileus. Total fluoroscopic time 34 seconds. Total fluoroscopic images 2. Electronically signed by: Ezekiel Barreto MD (02/19/2020 2:17 PM) [id number]
== END ==
LOC: KCIC 07:51
PROVIDERS: ATTEND Internal Medicine Gastroenterology
DX: R11.0 Nausea (principal); R10.9 Unspecified abdominal pain
CPT/HCPCS: 74250

== ENCOUNTER → 2020-02-21 | Outpatient (CLI) | payer MEDICARE ==
[2020-02-11 02:56] VITALS: BP 109/66
--- NOTE | 2020-02-21 13:33 | RAD ---
EXAM: Nuclear gastric emptying scan. HISTORY: Nausea and vomiting. COMPARISON: CT dated 02/10/2020. TECHNIQUE: Serial static images were obtained over the stomach following oral administration of 2 mCi 99m-Tc sulfur colloid. FINDINGS: The stomach empties into the small bowel without evidence of reflux in the area of the esophagus. There is 45 percent retained tracer activity within stomach at one hour (normal 34.8 percent to 91 percent). There is 29 percent retained tracer activity within stomach at 2 hours (normal 2.7 percent to 60 percent). There is 3 percent retained tracer activity within stomach at 3 hours (normal 0.5 percent to 28 percent). There is 2 percent retained tracer activity within stomach at 4 hours (normal 0.0 percent to 10 percent). The estimated time for half emptying of gastric contents, i.e. 'gastric emptying time' is 54 minutes (normal is 66 +/- 22 minutes). IMPRESSION: Normal gastric emptying scan. Electronically signed by: Lauren Macias MD (02/21/2020 1:30 PM) [facility]
== END | disposition home or self-care (01) ==
LOC: NM 08:09
PROVIDERS: ATTEND Internal Medicine Gastroenterology
DX: K31.89 Other diseases of stomach and duodenum (principal); R10.9 Unspecified abdominal pain; R11.0 Nausea
CPT/HCPCS: 78264; A9541

== ENCOUNTER → 2020-02-21 | Outpatient (CLI) | payer MEDICARE ==
[2020-02-11 02:56] VITALS: BP 109/66
== END ==
LOC: LAB 08:44
PROVIDERS: ATTEND Internal Medicine Gastroenterology
DX: Z79.899 Other long term (current) drug therapy (principal)
CPT/HCPCS: 36415; 82607; 83735

== ENCOUNTER → 2020-07-25 | Outpatient (CLI) | payer MEDICARE ==
[2020-03-22 15:00] VITALS: BP 96/56
[~2020-07-25] MED LIST changes: +CALC-584 PO; +CYAN100016 SL; +INSU100I49 SQ; +NITR0.4T22 SL
[2020-07-25 09:56] LABS: GFR 67.2; POTASSIUM 4.6 mmol/L (3.5-5.1)
[2020-07-25 10:04] LABS: BASO % 1 % (0-3); EOS # 0.1 x10^3/uL (0.0-0.7); EOS % 2 % (0-3); HEMATOCRIT 43.3 % (39.0-53.0); HEMOGLOBIN 14.8 g/dL (13.0-17.5); LYMPH # 0.7 x10^3/uL (1.0-4.8); LYMPH % 16 % (24-48); MEAN CORPUSCULAR HEMOGLOBIN 28 pg (25-35); MEAN CORPUSCULAR HGB CONC 34 g/dL (31-37); MEAN CORPUSCULAR VOLUME 83 fL (79-100); MONO # 0.4 x10^3/uL (0.0-1.1); MONO % 9 % (0-9); NEUT # 3.4 x10^3/uL (1.8-7.7); NEUT % 73 % (31-73); PLATELET COUNT 146 x10^3/uL (140-400); RED BLOOD COUNT 5.22 x10^6/uL (4.30-5.70); RED CELL DISTRIBUTION WIDTH 14.5 % (11.5-14.5); WHITE BLOOD COUNT 4.6 x10^3/uL (4.0-11.0)
[2020-07-25 10:19] LABS: ALBUMIN 3.9 g/dL (3.4-5.0); ALBUMIN/GLOBULIN RATIO 1.1 (1.0-1.7); CALCIUM 9.4 mg/dL (8.5-10.1); CREATININE 1.1 mg/dL (0.7-1.3); TOTAL BILIRUBIN 0.8 mg/dL (0.2-1.0); TOTAL PROTEIN 7.4 g/dL (6.4-8.2)
--- NOTE | 2020-07-25 16:52 | CARD ---
MR#: [id number] Date of Study: 07/25/2020 Ordering Physician: KELLI HERNANDEZ, Referring Physician: KELLI HERNANDEZ, Tech: Priyanka Delcid HEMAL APPROVED REPORT EXAM: Two-dimensional and M-mode echocardiogram with Doppler and color Doppler. Other Information Quality : Fair Rhythm : NSRAtrial FibrillationAtrial FlutterAPC'sPVC'sBradycardiaTachycardiaLBBBRBBB INDICATION Cardiac Disease: CAD 2D DIMENSIONS RVDd3.3 (2.9-3.5cm)Left Atrium(2D)4.0 (1.6-4.0cm) IVSd0.8 (0.7-1.1cm)Aortic Root(2D)4.1 (2.0-3.7cm) LVDd6.0 (3.9-5.9cm)LVOT Diameter2.1 (1.8-2.4cm) PWd1.0 (0.7-1.1cm)LVDs4.4 (2.5-4.0cm) FS (%) 26.9 %SV93.7 ml Aortic Valve AoV Peak Paul.127.9cm/sAoV VTI25.5cm AO Peak GR.6.5mmHgLVOT Peak Paul.101.4cm/s AO Mean GR.4mmHgAVA (VMAX)2.76cm2 BASSEM (VTI)2.03mr7ZM P 1/2 Emxp254yq Mitral Valve MV E Xivybllb79.7cm/sMV DECEL BHAF152za MV A Wfoqhkia01.2cm/sE/A Ratio0.9 Pulmonary Vein S1 Xfrypbhs32.1cm/sD2 Zsztbvxd93.9cm/s LEFT VENTRICLE The Left Ventricle is mildly dilated. There is normal left ventricular wall thickness. Left ventricle systolic function is low normal. The Ejection Fraction is estimated at 50%. Septal motion consistent with conduction abnormality. Transmitral Doppler flow pattern is Grade I-abnormal relaxation pattern . RIGHT VENTRICLE The right ventricle is normal size. The right ventricular systolic function is normal. ATRIA The left atrium is mildly dilated. The right atrium size is normal. The interatrial septum is intact with no evidence for an atrial septal defect or patent foramen ovale as noted on 2-D or Doppler imagi ng. AORTIC VALVE The aortic valve is calcified but opens well. Doppler and Color Flow revealed trace to mild aortic re gurgitation. There is no significant aortic valvular stenosis. MITRAL VALVE The mitral valve is calcified but opens well. Mitral annular calcification is mild. There is no evide nce of mitral valve prolapse. There is no mitral valve stenosis. Doppler and Color-flow revealed mild mitral regurgitation. TRICUSPID VALVE The tricuspid valve is normal in structure and function. Doppler and Color Flow revealed trace tricus pid valve regurgitation. There is no tricuspid valve stenosis. PULMONIC VALVE The pulmonic valve is not well visualized. Doppler and Color Flow revealed mild pulmonic valvular reg urgitation. There is no pulmonic valvular stenosis. GREAT VESSELS The aortic root is normal in size. The ascending aorta is moderate dilated at 4.0 cm. The IVC is norm al in size and collapses >50% with inspiration. PERICARDIAL EFFUSION There is no evidence of significant pericardial effusion. Critical Notification Critical Value: No <Conclusion> The Left Ventricle is mildly dilated. Left ventricle systolic function is low normal. The Ejection Fraction is estimated at 50%. Septal motion consistent with conduction abnormality. Doppler and Color Flow revealed trace to mild aortic regurgitation. There is no significant aortic valvular stenosis. Doppler and Color-flow revealed mild mitral regurgitation. Doppler and Color Flow revealed trace tricuspid valve regurgitation. The ascending aorta is moderate dilated at 4.0 cm. Signed by : Bernardo Gregory MD Electronically Approved : 07/25/2020 16:52:21
== END ==
LOC: NM 09:30
PROVIDERS: ATTEND Internal Medicine Cardiovascular Disease
DX: I08.8 Other rheumatic multiple valve diseases (principal); I25.10 Atherosclerotic heart disease of native coronary artery without angina pectoris
CPT/HCPCS: 36415; 78452; 80053; 83880; 85025; 93017; 93306; A9500

== ENCOUNTER → 2020-11-08 | Outpatient (CLI) | payer MEDICARE ==
[2020-03-22 15:00] VITALS: BP 96/56
[~2020-11-08] MED LIST changes: -ISOS30TA4 PO; +ISOS30TA68 PO; -LISI-338 PO; +LISI-517 PO; +LISI10TA16 PO; -LISI10TA2 PO
--- NOTE | 2020-11-08 14:50 | RAD ---
MR#: [id number] Date of Study: 11/08/2020 Ordering Physician: KELLI HERNANDEZ, Referring Physician: KELLI HERNANDEZ, Tech: APPROVED REPORT Patient Location: OUT-PATIENT Risk Factors Diabetes Smoking Duplex Results A/PTransverseLongitudinal Proximal Aorta 2.5cm Mid Aorta 2.0cm Distal Aorta 2.8cm Rt. Common Iliac Artery1.6cm Lt. Common Iliac Artery 1.7cm Doppler VelocityWaveform Proximal Aorta 109.0 cm/secTriphasic Aorta Mid. 70.0 cm/secTriphasic Distal Aorta 106.0 cm/secTriphasic Rt. Common Iliac Kqfsth824.0 cm/secTriphasic Lt. Common Iliac Artery 106.0 cm/secTriphasic Findings Grayscale images of the abdominal aorta demonstrates mild diffuse plaque. Velocities are grossly wit hin normal limits. The proximal bilateral iliac vessels demonstrate normal velocities. No significa nt aortic aneurysm identified. Critical Notification Critical Value: No <Conclusion> 1. No significant abdominal aortic aneurysm identified. Signed by : Kelli Hernandez, Electronically Approved : 11/08/2020 14:50:26
== END ==
LOC: US 08:27
PROVIDERS: ATTEND Internal Medicine Cardiovascular Disease
DX: I70.0 Atherosclerosis of aorta (principal); E11.9 Type 2 diabetes mellitus without complications; Z72.0 Tobacco use
CPT/HCPCS: 76770

== ENCOUNTER 2021-06-24 08:50 | Outpatient (CLI) | payer MEDICARE ==
[2021-06-24] VITALS (11 sets, daily range): BP systolic 10–137; BP diastolic 56–75
[~2021-06-24] VITALS: Ht 177.8 cm; Wt 95.0 kg
[~2021-06-24 08:50] MED LIST changes: -LISI-517 PO; -LISI1TAB23 PO; +LISI1TAB35 PO; +LISI5TAB15 PO
[2021-06-24 09:19] LABS: HEMATOCRIT 44.3 % (39.0-53.0); HEMOGLOBIN 14.5 g/dL (13.0-17.5); RED BLOOD COUNT 5.32 x10^6/uL (4.30-5.70); RED CELL DISTRIBUTION WIDTH 14.9 % (11.5-14.5); WHITE BLOOD COUNT 7.4 x10^3/uL (4.0-11.0)
[2021-06-24 09:40] LABS: CALCIUM 9.3 mg/dL (8.5-10.1); CREATININE 1.1 mg/dL (0.7-1.3); POTASSIUM 4.6 mmol/L (3.5-5.1)
[2021-06-24] MEDS ORDERED: SILD20TA4 PO (09:54)
[2021-06-24] MEDS ORDERED: HEPARIN for ARTERIAL LINE 1,500 ML ONE (10:00)
[2021-06-24] MEDS ORDERED: IODIXANOL 320 MG/ML 100 ML VIAL. ONE (10:00)
[2021-06-24] MEDS ORDERED: LIDOCAINE 1% Multi-Dose 20 ML VIAL. ONE (10:04)
[2021-06-24] MEDS ORDERED: MIDAZOLAM HCL/PF 2 MG/2 ML VIAL. ONE (10:05)
[2021-06-24] MEDS ORDERED: fentaNYL PF VIAL 100 MCG/2 ML VIAL ONE (10:05)
[2021-06-24] MEDS ORDERED: fentaNYL PF VIAL 100 MCG/2 ML VIAL IV ONE (10:15)
[2021-06-24] MEDS ORDERED: IODIXANOL 320 MG/ML 100 ML VIAL. IART ONE (10:15)
[2021-06-24] MEDS ORDERED: MIDAZOLAM HCL/PF 2 MG/2 ML VIAL. IV ONE (10:15)
[2021-06-24] MEDS ORDERED: LIDOCAINE 1% Multi-Dose 20 ML VIAL. INJ ONE (10:15)
--- NOTE | 2021-06-24 14:39 | NUR ---
Discharge Note: YANA TORRES Discharge instructions and discharge home medications reviewed with Patient and a copy given. All questions have been answered and understanding verbalized. The following instructions and handouts were given: groin site care and adult moderate sedation Discontinued lines and drains: Peripheral IV intact-right forearm, left IV forearm kept in place for Echo. Patient discharged to Home or Self Care withFamily Membervia Wheelchair/wheeled over to Echo.
--- NOTE | 2021-06-24 18:13 | CARD ---
MR#: [id number] Date of Study: 06/24/2021 Ordering Physician: KELLI LANE, Referring Physician: KELLI LANE, Tech: RT Eliseo(R) APPROVED REPORT Technologist: Gilda Feliciano RT(R) Nurse: Laurie Rodas RN Procedure(s) performed: MODERATE SEDATION TIME: 60 MINUTES FLUORO TIME: 7 MIN DOSE: 126 GYCM2 CONTRAST: 93CC VISI LHC, Coronary angiography, Bypass angiography INDICATION The indication(s) include : unstable angina , dyspnea. [facility] Clinical Frailty Scale [facility] Clinical Frailty Scale: Managing Well Heart Failure Heart Failure: Yes If Yes, Newly Diagnosed: No If Yes, HF Type: Diastolic Systolic If Yes, NYHA Class: Class II PROCEDURE NARRATIVE Clinical information: 65-year-old man with known coronary artery disease presents to the catheterization laboratory for a p lanned cardiac catheterization in the setting of worsening exertional dyspnea and chest discomfort. Procedure details: After proper informed consent the right groin was prepped and draped in usual sterile fashion. Access: Under 1% lidocaine local anesthesia a 5 Occitan sheath was placed in the right common femoral artery. There was initially difficulty advancing over a J-tipped guidewire and ultimately a Amplatz stiff wir e was used to traverse the scar tissue in the right groin. Diagnostic angiography: Right and left coronary artery angiography was performed with standard JL4 and JR4 catheters. Bypass angiography was performed with a JR4 catheter. Left ventricular end-diastolic pressure was obtained w ith a pigtail catheter and a pullback was performed. Left ventriculogram was deferred due to known ej ection fraction from echocardiogram. See separate report. FINDINGS: Hemodynamics: Aorta 110/70 LVEDP 10 mmHg No LV to aortic pullback gradient. CORONARY ANGIOGRAPHY: Left main is a large-caliber vessel with normal angiographic appearance LAD is a large-caliber vessel proximally with a 70% in-stent restenosis of a proximal stent and a mid 95% stenosis. D1 is a small caliber vessel with a proximal 50% stenosis. The distal vessel seen to fill via patent vein graft. D2 is a moderate caliber vessel with a ostial/proximal 70% stenosis. The vessel seen to fill via a pa tent radial graft. There is a patent stent at the distal anastomosis extending into D2. Left circumflex is a moderate caliber nondominant vessel mild diffuse irregularities of up to 30%. OM1 is a small caliber vessel with mild luminal irregularities. RCA is a large caliber dominant vessel with a focal aneurysmal dilatation which was previously seen. The distal vessel has a subtotal occlusion. RPDA and RPL are seen to fill via a sequential vein graft and have mild diffuse irregularities distal to the anastomosis of up to 30%. BYPASS ANGIOGRAPHY: Saphenous vein graft to the first diagonal is widely patent without anastomotic stenosis Radial graft to the second diagonal has a ostial 30-50% stenosis, there is also a patent stent at the distal anastomosis. Sequential Y graft to the RPDA and RPL is widely patent without anastomotic stenosis. Closure: At case completion the catheters and sheath were removed and hemostasis was achieved via manual compr ession. Complications: No acute complications noted. Conclusion 1. Normal left ventricular filling pressures. 2. Three-vessel coronary artery disease 3. 4/4 bypass grafts patent Recommendations 1. Continue current medication regimen including aspirin, Plavix, metoprolol, Imdur and Ranexa. Patie nt's LVEDP is within normal limits, BP and HR are well controlled. Patient is fully optimized medical ly. 2. Consider referral for high risk PCI of the ione LAD versus EECP. Signed by : Kelli Lane, Electronically Approved : 06/24/2021 18:13:25
--- NOTE | 2021-06-25 12:42 | CARD ---
MR#: [id number] Date of Study: 06/24/2021 Ordering Physician: JESUS HERNANDEZ, Referring Physician: JESUS HERNANDEZ, Tech: Razia Jose [facility] APPROVED REPORT EXAM: Two-dimensional and M-mode echocardiogram with Doppler and color Doppler. Other Information Quality : AverageHR: 99bpm Rhythm : NSR INDICATION Cardiac Disease: CAD RISK FACTORS Hypertension Hyperlipidemia 2D DIMENSIONS RVDd3.0 (2.9-3.5cm)Left Atrium(2D)5.2 (1.6-4.0cm) IVSd1.1 (0.7-1.1cm)Aortic Root(2D)3.9 (2.0-3.7cm) LVDd5.9 (3.9-5.9cm)LVOT Diameter2.5 (1.8-2.4cm) PWd1.1 (0.7-1.1cm)LVDs3.9 (2.5-4.0cm) FS (%) 33.1 %SV104.5 ml LVEF(%)60.8 (>50%) Aortic Valve AoV Peak Paul.134.6cm/sAoV VTI30.3cm AO Peak GR.7.3mmHgLVOT Peak Paul.123.7cm/s AO Mean GR.3mmHgAVA (VMAX)4.51cm2 Mitral Valve MV E Wavihafg54.2cm/sMV DECEL YXDY336uc MV A Xqtakkku76.3cm/sE/A Ratio1.2 Pulmonary Valve PV Peak Qldqddqn93.0cm/s LEFT VENTRICLE The Left Ventricle is mildly dilated. There is borderline concentric left ventricular hypertrophy. Th e systolic function is mildly impaired. Estimated ejection fraction 40-45%. Septal motion suggestive of prior sternotomy.The mid to distal septum and anterior wall are moderately hypokinetic. Otherwise there is mild global hypokinesis. Transmitral Doppler flow pattern is Grade I-abnormal relaxation pat tern. RIGHT VENTRICLE The right ventricle is normal size. There is normal right ventricular wall thickness. The right ventr icular systolic function is normal. ATRIA The left atrium size is normal. The right atrium size is normal. The interatrial septum is intact wit h no evidence for an atrial septal defect or patent foramen ovale as noted on 2-D or Doppler imaging. AORTIC VALVE The aortic valve is normal in structure and function. Doppler and Color Flow revealed trace aortic re gurgitation. There is no significant aortic valvular stenosis. MITRAL VALVE The mitral valve is normal in structure and function. There is no evidence of mitral valve prolapse. There is no mitral valve stenosis. Doppler and Color-flow revealed mild mitral regurgitation. TRICUSPID VALVE The tricuspid valve is normal in structure and function. Doppler and Color Flow revealed no tricuspid valve regurgitation noted. There is no tricuspid valve stenosis. PULMONIC VALVE Not well-visualized. GREAT VESSELS The aortic root is mildly enlarged at 3.9 cm. The IVC is normal in size and collapses >50% with inspi ration. PERICARDIAL EFFUSION There is no evidence of significant pericardial effusion. Critical Notification Critical Value: No <Conclusion> The systolic function is mildly impaired. Estimated ejection fraction 40-45%. Septal motion suggestive of prior sternotomy.The mid to distal septum and anterior wall are moderatel y hypokinetic. Otherwise there is mild global hypokinesis. The aortic root is mildly enlarged at 3.9 cm. Signed by : Jesus Hernandez, Electronically Approved : 06/25/2021 12:41:30
--- NOTE | 2021-06-26 17:35 | PDOC1 ---
History and Physical Visit Information Date of Admission: 06/24/2021 History of Present Illness History of Present Illness 65-year-old man who is well-known to our service presents to the [facility] for evaluation of chest discomfort. He was seen in the office approximately 4 to 6 weeks ago and was doing fairly well but since then has had some exertional dyspnea and burning chest discomfort in his throat. He has known coronary yanet ry disease with a prior bypass and therefore after discussion of risks and benefits the patient was brought to the [facility] for further evaluation and treatment. The patient reports compliance with all his antianginals. No other hospitalizations or ER visits Cardiac Risk Factors Comments 1. Coronary artery disease status post bypass x2 2. Hypertension 3. Dyslipidemia 4. Chronic stable angina. Current Medications Current Medications Home medications reviewed include metoprolol, amlodipine, Imdur and Ranexa. Allergies Allergies Allergies Coded Allergies Type Severity Reaction Last Updated Verified No Known Drug Allergies 06/24/21 No Social History Smoke: No ALCOHOL: none Drugs: None Lives: with Family Family History Comments No significant family history ROS Review of System Negative for 10 out of 14 systems reviewed unless otherwise mentioned above in HPI Physical Exam Comments The patient appeared well nourished and normally developed. Head exam is unremarkable. No scleral icterus or corneal arcus noted. Neck is without jugular venous distension, thyromegaly, or carotid bruits. Carotid upstrokes are brisk bilaterally. Lungs are clear to auscultation and percussion. Cardiac exam reveals the PMI to be normally sized and situated. Rhythm is regular. First and second heart sounds normal. No murmurs, rubs or gallops. Abdominal exam reveals normal bowel sounds, no masses, no organomegaly and no aortic enlargement. Extremities are nonedematous and both femoral and pedal pulses are normal. Msk: No traumua Neuro: No focal deficits ECG EKG: NSR VTE Prophylaxis Ordered VTE Prophylaxis Devices: No VTE Pharmacological Prophylaxi: No Assessment/Plan Assessment/Plan 1. Worsening angina in a patient on maximally tolerated antianginal medical therapy. We will proceed with a cardiac catheterization for further evaluation and treatment. Risks and benefits discussed with the patient. Justicifation of Admission Dx: Justifications for Admission: Justification of Admission Dx: Yes Angina: Symp at Rest KELLI HERNANDEZ MD Jun 26, 2021 17:35
== END 2021-06-24 15:30 | disposition home or self-care (01) ==
LOC: CCL 08:50
PROVIDERS: ATTEND Internal Medicine Cardiovascular Disease
DX: I25.110 Atherosclerotic heart disease of native coronary artery with unstable angina pectoris (principal); R06.09 Other forms of dyspnea; I11.0 Hypertensive heart disease with heart failure; I50.9 Heart failure, unspecified; E78.00 Pure hypercholesterolemia, unspecified; E11.9 Type 2 diabetes mellitus without complications; J44.9 Chronic obstructive pulmonary disease, unspecified; E66.9 Obesity, unspecified; M19.90 Unspecified osteoarthritis, unspecified site; F32.9 Major depressive disorder, single episode, unspecified; Z87.891 Personal history of nicotine dependence; Z79.82 Long term (current) use of aspirin; Z79.84 Long term (current) use of oral hypoglycemic drugs; Z79.899 Other long term (current) drug therapy; Z90.49 Acquired absence of other specified parts of digestive tract; Z98.890 Other specified postprocedural states; Z72.89 Other problems related to lifestyle; Z82.49 Family history of ischemic heart disease and other diseases of the circulatory system
CPT/HCPCS: 36415; 80048; 85027; 93306; 93459; 99152; 99153; C1769; C1894; J1644; J2250; J3010; J3490; Q9967